=== PATIENT | female | born 1985 | race Caucasian/White ===

== ENCOUNTER 2020-07-06 19:32 | Emergency (ER) | payer MEDICAID ==
--- NOTE | 2020-07-06 19:48 | ERPHSYRPT ---
- History of Present Illness Time Seen by Provider: 07/06/20 19:47 Historian: patient Exam Limitations: no limitations Physician History: This is a 35-year-old white female who has had 3 C-sections and hysterectomy and presents with 1 month history of abdominal pain. In the last 4 days she has had worsening abdominal pain. She has had intermittent nausea but no vomiting no diarrhea. She had no fever or chills. She does have urinary frequency. The pain is primarily upper quadrant on the left side and into the back on the left side. Timing/Duration: day(s) (4) Activities at Onset: none Quality: cramping Abdominal Pain Onset Location: LUQ, LLQ, flank (Left) Pain Radiation: flank (Left) Severity of Pain-Max: mild Severity of Pain-Current: mild Modifying Factors: Improves With: nothing Associated Symptoms: nausea, No chest pain, No diarrhea, No fever/chills, No vomiting Previous symptoms: same symptoms as today (Present for a month but worsening) Allergies/Adverse Reactions: sulfamethoxazole [From Bactrim] Allergy (Verified 07/06/20 19:38) trimethoprim [From Bactrim] Allergy (Verified 07/06/20 19:38) Travel Risk - International Travel Have you traveled outside of the country in past 3 weeks: No - Coronavirus Screening Are you exhibiting any of the following symptoms?: No Close contact with a COVID-19 positive Pt in past 14-21 Days: No - Vaccine Status Have you recieved a Covid-19 vaccination: No - Review of Systems Constitutional: No Symptoms Eyes: No Symptoms Ears, Nose, & Throat: No Symptoms Respiratory: No Symptoms Cardiac: No Symptoms Abdominal/Gastrointestinal: Abdominal Pain, No Nausea, No Vomiting, No Diarrhea Genitourinary Symptoms: No Symptoms Musculoskeletal: No Symptoms Skin: No Symptoms Neurological: No Symptoms Psychological: No Symptoms Endocrine: No Symptoms Hematologic/Lymphatic: No Symptoms Immunological/Allergic: No Symptoms All Other Systems: Reviewed and Negative - Past Medical History Pertinent Past Medical History: Yes - Past Surgical History Past Surgical History: Yes - Nursing Vital Signs Nursing Vital Signs: Initial Vital Signs Temperature 98.3 F 07/06/20 19:40 Pulse Rate 98 H 07/06/20 19:40 Respiratory Rate 16 07/06/20 19:40 Blood Pressure 139/88 07/06/20 19:40 O2 Sat by Pulse Oximetry 97 07/06/20 19:40 Pain Scale Pain Intensity 8 - Physical Exam General Appearance: no apparent distress, alert, anxiety Eye Exam: PERRL/EOMI, eyes nml inspection Ears, Nose, Throat Exam: normal ENT inspection, moist mucous membranes Neck Exam: normal inspection, non-tender, supple, full range of motion Respiratory Exam: normal breath sounds, lungs clear, airway intact, No chest tenderness, No respiratory distress Cardiovascular Exam: regular rate/rhythm, normal heart sounds, normal peripheral pulses Gastrointestinal/Abdomen Exam: soft, normal bowel sounds, tenderness (Mild diffuse), guarding (Plus/minus) Pelvic Exam: not done Rectal Exam: not done Back Exam: normal inspection, normal range of motion, No CVA tenderness, No vertebral tenderness Extremity Exam: normal inspection, normal range of motion, pelvis stable Neurologic Exam: alert, oriented x 3, cooperative, change lead II-XII nml as tested, normal mood/affect, nml cerebellar function, nml station & gait, sensation nml Skin Exam: normal color, warm, dry Lymphatic Exam: No adenopathy SpO2 Interpretation: normal O2 Delivery: Room Air - Course Nursing assessment & vital signs reviewed: Yes Ordered Tests: Active Orders 24 hr Category Date Time Status Clean Catch Urine Specimen STAT Care 07/06/20 19:55 Active IV Insertion STAT Care 07/06/20 19:55 Active ABDOMEN AND PELVIS W/0 CONTRAS [CT] Stat Exams 07/06/20 20:16 Taken AMYLASE Stat Lab 07/06/20 19:55 Completed CBC W DIFF Stat Lab 07/06/20 19:55 Completed CMP Stat Lab 07/06/20 19:55 Completed LIPASE Stat Lab 07/06/20 19:55 Completed Lactic Acid Stat Lab 07/06/20 19:55 Completed UA W/RFX UR CULTURE Stat Lab 07/06/20 20:03 Completed Urine Triage Profile Stat Lab 07/06/20 20:03 Completed Lab/Rad Data: Laboratory Result Diagrams 07/06/20 19:55 07/06/20 19:55 Laboratory Results 07/06/20 07/06/20 07/06/20 Range/Units 20:03 20:03 19:55 WBC (4.0-10.5) K/mm3 RBC (4.1-5.4) M/mm3 Hgb (12.0-16.0) gm/dl Hct (35-47) % MCV (78-100) fl MCH (26-32) pg MCHC (32-36) g/dl RDW (11.5-14.0) % Plt Count (150-450) K/mm3 MPV (7.5-11.0) fl Gran % (36.0-66.0) % Eos # (Auto) (0-0.5) Absolute Lymphs (auto) (1.0-4.6) Absolute Monos (auto) (0.0-1.3) Lymphocytes % (24.0-44.0) % Monocytes % (0.0-12.0) % Eosinophils % (0.00-5.0) % Basophils % (0.0-0.4) % Absolute Granulocytes (1.4-6.9) Basophils # (0-0.4) Sodium 138 (137-145) mmol/L Potassium 4.0 (3.5-5.1) mmol/L Chloride 103 (98-107) mmol/L Carbon Dioxide 25 (22-30) mmol/L Anion Gap 13.1 (5-15) MEQ/L BUN 7 (7-17) mg/dL Creatinine 0.64 (0.52-1.04) mg/dL Estimated GFR > 60.0 ML/MIN Glucose 95 (74-106) mg/dL Lactic Acid (0.4-2.0) Calcium 9.5 (8.4-10.2) mg/dL Total Bilirubin 0.30 (0.2-1.3) mg/dL AST 45 H (14-36) U/L ALT 39 H (0-35) U/L Alkaline Phosphatase 47 (38-126) U/L Serum Total Protein 7.1 (6.3-8.2) g/dL Albumin 4.6 (3.5-5.0) g/dL Amylase 66 (30-110) U/L Lipase 41 (23-300) U/L Urine Color STRAW (YELLOW) Urine Appearance CLEAR (CLEAR) Urine pH 7.0 (5-6) Ur Specific [place] 1.005 (1.005-1.025) Urine Protein NEGATIVE (Negative) Urine Ketones NEGATIVE (NEGATIVE) Urine Blood NEGATIVE (0-5) Itz/ul Urine Nitrite NEGATIVE (NEGATIVE) Urine Bilirubin NEGATIVE (NEGATIVE) Urine Urobilinogen NEGATIVE (0-1) mg/dL Ur Leukocyte Esterase NEGATIVE (NEGATIVE) Urine WBC (Auto) NONE (0-5) /HPF Urine RBC (Auto) NONE (0-2) /HPF U Epithel Cells (Auto) NONE (FEW) /HPF Urine Bacteria (Auto) NONE (NEGATIVE) /HPF Urine Culture Reflexed NO (NO) Urine Glucose NEGATIVE (NEGATIVE) mg/dL Urine Opiates Level NEGATIVE (NEGATIVE) Ur Methadone NEGATIVE (NEGATIVE) Urine Barbiturates NEGATIVE (NEGATIVE) Ur Phencyclidine (PCP) NEGATIVE (NEGATIVE) Urine Amphetamine NEGATIVE (NEGATIVE) U Benzodiazepine Level NEGATIVE (NEGATIVE) Urine Cocaine NEGATIVE (NEGATIVE) Urine Marijuana (THC) POSITIVE (NEGATIVE) 07/06/20 07/06/20 Range/Units 19:55 19:55 WBC 12.4 H (4.0-10.5) K/mm3 RBC 4.74 (4.1-5.4) M/mm3 Hgb 14.9 (12.0-16.0) gm/dl Hct 43.7 (35-47) % MCV 92.2 (78-100) fl MCH 31.4 (26-32) pg MCHC 34.1 (32-36) g/dl RDW 13.0 (11.5-14.0) % Plt Count 328 (150-450) K/mm3 MPV 9.9 (7.5-11.0) fl Gran % 89.2 H (36.0-66.0) % Eos # (Auto) 0 (0-0.5) Absolute Lymphs (auto) 0.98 L (1.0-4.6) Absolute Monos (auto) 0.33 (0.0-1.3) Lymphocytes % 7.9 L (24.0-44.0) % Monocytes % 2.7 (0.0-12.0) % Eosinophils % 0.0 (0.00-5.0) % Basophils % 0.2 (0.0-0.4) % Absolute Granulocytes 11.09 H (1.4-6.9) Basophils # 0.03 (0-0.4) Sodium (137-145) mmol/L Potassium (3.5-5.1) mmol/L Chloride (98-107) mmol/L Carbon Dioxide (22-30) mmol/L Anion Gap (5-15) MEQ/L BUN (7-17) mg/dL Creatinine (0.52-1.04) mg/dL Estimated GFR ML/MIN Glucose (74-106) mg/dL Lactic Acid 1.0 (0.4-2.0) Calcium (8.4-10.2) mg/dL Total Bilirubin (0.2-1.3) mg/dL AST (14-36) U/L ALT (0-35) U/L Alkaline Phosphatase (38-126) U/L Serum Total Protein (6.3-8.2) g/dL Albumin (3.5-5.0) g/dL Amylase (30-110) U/L Lipase (23-300) U/L Urine Color (YELLOW) Urine Appearance (CLEAR) Urine pH (5-6) Ur Specific [place] (1.005-1.025) Urine Protein (Negative) Urine Ketones (NEGATIVE) Urine Blood (0-5) Itz/ul Urine Nitrite (NEGATIVE) Urine Bilirubin (NEGATIVE) Urine Urobilinogen (0-1) mg/dL Ur Leukocyte Esterase (NEGATIVE) Urine WBC (Auto) (0-5) /HPF Urine RBC (Auto) (0-2) /HPF U Epithel Cells (Auto) (FEW) /HPF Urine Bacteria (Auto) (NEGATIVE) /HPF Urine Culture Reflexed (NO) Urine Glucose (NEGATIVE) mg/dL Urine Opiates Level (NEGATIVE) Ur Methadone (NEGATIVE) Urine Barbiturates (NEGATIVE) Ur Phencyclidine (PCP) (NEGATIVE) Urine Amphetamine (NEGATIVE) U Benzodiazepine Level (NEGATIVE) Urine Cocaine (NEGATIVE) Urine Marijuana (THC) (NEGATIVE) - Progress Progress: unchanged Progress Note: 07/06/20 20:46 CAT scan of the abdomen pelvis without contrast is negative for any acute intra- abdominal or intrapelvic process. Counseled pt/family regarding: lab results, diagnosis, need for follow-up, rad results - Departure Departure Disposition: Home Clinical Impression: Abdominal pain Condition: Stable Critical Care Time: No Referrals: RILEY MATHEW [Primary Care Provider] - Additional Instructions: Drink plenty of fluids. Call your primary care provider tomorrow morning to make arrangements for follow-up for further management.
[2020-07-06 20:22] LABS: Absolute Neutrophil Ct (ANC) 11.09 (1.4-6.9); BASOPHIL % 0.2 % (0.0-0.4); Basophil (Absolute #) 0.03 (0-0.4); Eosinophil (Absolute #) 0 (0-0.5); Hematocrit 43.7 % (35-47); Hemoglobin 14.9 gm/dl (12.0-16.0); Lymphocyte (Absolute #) 0.98 (1.0-4.6); Lymphocytes % 7.9 % (24.0-44.0); Mean Cell Volume 92.2 fl (78-100); Mean Corpuscular Hemoglobin 31.4 pg (26-32); Mean Corpuscular Hgb Concent. 34.1 g/dl (32-36); Mean Platelet Volume 9.9 fl (7.5-11.0); Monocyte (Absolute #) 0.33 (0.0-1.3); Monocytes % 2.7 % (0.0-12.0); Neutrophil % 89.2 % (36.0-66.0); Platelet Count 328 K/mm3 (150-450); Red Blood Count 4.74 M/mm3 (4.1-5.4); White Blood Count 12.4 K/mm3 (4.0-10.5)
[2020-07-06 20:28] LABS: Appearance CLEAR (CLEAR); Bilirubin NEGATIVE (NEGATIVE); Blood NEGATIVE Ery/ul (0-5); Glucose NEGATIVE (NEGATIVE); Ketones NEGATIVE (NEGATIVE); Leukocyte Esterase NEGATIVE (NEGATIVE); Nitrite NEGATIVE (NEGATIVE); Protein,Urine Dip NEGATIVE (Negative); Specific Gravity 1.005 (1.005-1.025); Urobilinogen NEGATIVE mg/dL (0-1)
[2020-07-06 20:38] VITALS: PULSE 76
[2020-07-06 20:40] LABS: Amphetamine,Urine NEGATIVE (NEGATIVE); Barbiturate,Urine NEGATIVE (NEGATIVE); Benzodiazepine,Urine NEGATIVE (NEGATIVE); Cocaine,Urine NEGATIVE (NEGATIVE); Methadone,Urine NEGATIVE (NEGATIVE); Opiate,Urine NEGATIVE (NEGATIVE); PCP,Urine NEGATIVE (NEGATIVE); THC,Urine POSITIVE (NEGATIVE)
[2020-07-06 20:41] LABS: ALBUMIN 4.6 g/dL (3.5-5.0); ALKALINE PHOSPHATASE 47 U/L (38-126); AMYLASE 66 U/L (30-110); ANION GAP 13.1 MEQ/L (5-15); BLOOD UREA NITROGEN 7 mg/dL (7-17); CHLORIDE 103 mmol/L (98-107); Calcium 9.5 mg/dL (8.4-10.2); Carbon Dioxide 25 mmol/L (22-30); Creatinine 1 0.64 mg/dL (0.52-1.04); EST GLOMERULAR FILTRATION RATE > 60.0 ML/MIN; Glucose 95 mg/dL (74-106); LIPASE 41 U/L (23-300); SGOT/AST 45 U/L (14-36); SGPT/ALT 39 U/L (0-35); SODIUM 138 mmol/L (137-145); Total Protein 7.1 g/dL (6.3-8.2)
[2020-07-06] MEDS ORDERED: NORCO 5/325 MG ONE (20:49)
[2020-07-06] MEDS: NORCO 5/325 MG PO ONE (20:50)
[2020-07-06 20:57] VITALS: BP 115/83; O2SAT 96
--- NOTE | 2020-07-07 08:37 | XRAY ---
Indication: Left abdomen pain and diarrhea 2 months. History of ovarian cancer. Multiple contiguous axial images obtained through the abdomen and pelvis without contrast. Comparison: None Lung bases are clear. Heart is not enlarged. Noncontrasted stomach and bowel loops nonobstructed. Normal appendix. There has been hysterectomy. Remaining liver, gallbladder, pancreas, spleen, adrenal glands, kidneys, ureters, bladder, and aorta appear unremarkable for noncontrast exam. Osseous structures intact. No ventral or inguinal hernias. Impression: Negative CT abdomen/pelvis without contrast exam.
== END 2020-07-06 21:09 | disposition home or self-care (01) ==
LOC: ED 19:32
DX: R10.9 Unspecified abdominal pain (principal)
CPT/HCPCS: 36000; 36415; 74176; 80053; 80307; 81001; 82150; 83605; 83690; 85025; 99284; A9270-GY

== ENCOUNTER 2021-02-19 15:01 | Emergency (ER) | payer OTHER ==
[2021-02-19 15:13] VITALS: BP 116/74; PULSE 87; O2SAT 100
[2021-02-19] MEDS ORDERED: TORAdol 30 mg Injection IM ONE (15:32)
[2021-02-19] MEDS ORDERED: Reglan 10 MG/2 ML IM ONE (15:32)
[2021-02-19] MEDS ORDERED: BENADRYL 50 MG/ML IM ONE (15:32)
--- NOTE | 2021-02-19 15:38 | ERPHSYRPT ---
- History of Present Illness Time Seen by Provider: 02/19/21 15:17 Source: patient Exam Limitations: no limitations Patient Subjective Stated Complaint: Headache Triage Nursing Assessment: Patient ambulated back to ED and transferred self to bed. Patient A+O X3. Patient's skin pink, warm and dry. Patient complains of headache 8/10 for the past two days. Patient denies any recent trauma or injury. Patient complains of a lot of stress in her life recently. Patient denies N/V or diarrhea. Physician History: 35 years old female with history of migraines, anxiety, depression presented in the ER with chief complaint of left-sided headache for the last 2 days, continuous, moderate to severe intensity, sharp in nature, without any significant aggravating or relieving factors. She has been taking [id number] medication with no significant relief. Denies any focal numbness tingling weakness. No visual disturbance. Headache is similar to previous episodes and does not think this is the worst headache of her life. Patient reports she is going through a lot of stress and this is adding to her symptoms. Denies any suicidal or homicidal ideations. Timing/Duration: day(s) (2), constant, gradual onset, worse Quality: sharpness Head Pain Location: frontal, temporal, parietal Severity of Pain-Max: severe Severity of Pain-Current: moderate Recent Head Trauma: frequent headaches Associated Symptoms: nausea/vomiting, No confusion, No dizziness, No fatigue, No facial pain, No fever/chills, No flushing, No light-headedness, No loss of consciousness, No nasal congestion, No nasal drainage, No neck pain, No numbness in legs/feet, No rash, No sweating, No scotoma, No seizures, No sinus infection, No sensitive to light, No speech problems, No stiff neck, No trouble walking, No vision changes, No visual disturbance, No weakness Previous symptoms: same symptoms as today Allergies/Adverse Reactions: sulfamethoxazole [From Bactrim] Allergy (Verified 02/19/21 15:07) trimethoprim [From Bactrim] Allergy (Verified 02/19/21 15:07) Home Medications: Albuterol 2.5 mg/3 ml Neb [Proventil 2.5 mg/3 ml Neb] 1 vial IH Q4-6HPRN PRN 07/06/20 [History] Albuterol Sulfate [Ventolin Hfa] 2 puffs IH Q4H PRN 07/06/20 [History] Budesonide/Formoterol Fumarate [Symbicort 160-4.5 Mcg Inhaler] 2 puffs IH BID 07/06/20 [History] Escitalopram Oxalate 10 mg [Lexapro 10 MG] 10 mg PO DAILY 07/06/20 [History] Gabapentin 400 mg [Neurontin 400 MG] 400 mg PO TID 07/06/20 [History] hydrOXYzine HCL [Hydroxyzine HCl] 10 mg PO TID 07/06/20 [History] hydrOXYzine HCL [Hydroxyzine HCl] 25 mg PO TID PRN 07/06/20 [History] Hx Tetanus, Diphtheria Vaccination/Date Given: Yes Hx Influenza Vaccination/Date Given: No Hx Pneumococcal Vaccination/Date Given: No Immunizations Up to Date: Yes Travel Risk - International Travel Have you traveled outside of the country in past 3 weeks: No - Coronavirus Screening Are you exhibiting any of the following symptoms?: No Close contact with a COVID-19 positive Pt in past 14-21 Days: No - Vaccine Status Have you recieved a Covid-19 vaccination: No - Review of Systems Constitutional: No Symptoms Eyes: No Symptoms Ears, Nose, & Throat: No Symptoms Respiratory: No Symptoms Cardiac: No Symptoms Abdominal/Gastrointestinal: Nausea, No Abdominal Pain, No Vomiting Genitourinary Symptoms: No Symptoms Musculoskeletal: No Symptoms Skin: No Symptoms Neurological: Headache Psychological: Anxiety Endocrine: No Symptoms Hematologic/Lymphatic: No Symptoms Immunological/Allergic: No Symptoms - Past Medical History Pertinent Past Medical History: Yes Neurological History: Peripheral Neuropathy Respiratory History: Asthma Psycho-Social History: Anxiety, Depression, Other - Past Surgical History Past Surgical History: Yes Musculoskeletal: Other Female Surgical History: Hysterectomy, Section Other Surgical History: 3- sections, finger surgery - Social History Smoking Status: Current every day smoker Exposure to second hand smoke: Yes Drug Use: none Patient Lives Alone: No - Female History Hx Now: No - Nursing Vital Signs Nursing Vital Signs: Initial Vital Signs Temperature 97.8 F 02/19/21 15:08 Pulse Rate 87 02/19/21 15:08 Respiratory Rate 18 02/19/21 15:08 Blood Pressure 116/74 02/19/21 15:08 O2 Sat by Pulse Oximetry 100 02/19/21 15:08 Pain Scale Pain Intensity 8 - Physical Exam General Appearance: no apparent distress, alert Eye Exam: PERRL/EOMI, eyes nml inspection Ears, Nose, Throat Exam: normal ENT inspection, pharynx normal Neck Exam: normal inspection, non-tender, supple, full range of motion, No meningismus Respiratory Exam: normal breath sounds, lungs clear Cardiovascular Exam: regular rate/rhythm, normal heart sounds Back Exam: normal inspection, normal range of motion Extremity Exam: normal inspection, normal range of motion Mental Status Exam: alert, oriented x 3, cooperative personal lines account executive Exam: normal hearing, normal speech, PERRL Coordination/Gait Exam: normal finger to nose, normal gait, normal cerebellar function, negative Romberg's sign DTR Exam: bicep (R): 2+, bicep (L): 2+, knee (R): 2+, knee (L): 2+ Skin Exam: normal color SpO2 Interpretation: normal SpO2: 100 O2 Delivery: Room Air Ordered Tests: Medication Summary Discontinued Medications Generic Name Dose Route Start Last Admin Trade Name [place] PRN Reason Stop Dose Admin Acetaminophen 975 mg 02/19/21 15:32 02/19/21 16:25 Acetaminophen 325 Mg Tablet PO 02/19/21 15:33 Not Given STAT ONE Acetaminophen Confirm 02/19/21 16:01 Acetaminophen 325 Mg Tablet Administered 02/19/21 16:02 Dose 975 mg .ROUTE .STK-MED ONE Diphenhydramine HCl 25 mg 02/19/21 15:32 02/19/21 16:24 Diphenhydramine Hcl 50 Mg/Ml Vial IM 02/19/21 15:33 Not Given STAT ONE Diphenhydramine HCl Confirm 02/19/21 16:01 Diphenhydramine Hcl 50 Mg/Ml Vial Administered 02/19/21 16:02 Dose 50 mg .ROUTE .STK-MED ONE Ketorolac Tromethamine 30 mg 02/19/21 15:32 02/19/21 16:25 Ketorolac Tromethamine 30 Mg/Ml Inj IM 02/19/21 15:33 Not Given STAT ONE Ketorolac Tromethamine Confirm 02/19/21 16:01 Ketorolac Tromethamine 30 Mg/Ml Inj Administered 02/19/21 16:02 Dose 30 mg .ROUTE .STK-MED ONE Metoclopramide HCl 10 mg 02/19/21 15:32 02/19/21 16:24 Metoclopramide Hcl 10 Mg/2 Ml Vial IM 02/19/21 15:33 Not Given STAT ONE Metoclopramide HCl Confirm 02/19/21 16:02 Metoclopramide Hcl 10 Mg/2 Ml Vial Administered 02/19/21 16:03 Dose 10 mg .ROUTE .STK-MED ONE - Progress Progress: improved Air Movement: good Progress Note: 02/19/21 16:19 I have ordered migraine cocktail. Patient has a nonfocal neuro exam throughout her stay in the ER. Plan RN went into administering medication, patient with in deep sleep. I went in there and patient was difficult to wake up and she did admit that she has taken sleeping pill before she coming here and her headache is not there anymore. Headache was similar to previous episodes and patient does have history of drug use, I would not administer any medication currently and recommended taking Tylenol ibuprofen as needed. She is not confused or altered at all. She walked out of the ER in a stable condition. Blood Culture(s) Obtained: No Antibiotics given: No Counseled pt/family regarding: diagnosis, need for follow-up - Departure Departure Disposition: Home Clinical Impression: Migraine headache Qualifiers: Migraine type: without aura Status migrainosus presence: without status migrainosus Intractability: not intractable Qualified Code(s): G43.009 - Migraine without aura, not intractable, without status migrainosus Condition: Stable Critical Care Time: No Referrals: RILEY MATHEW NP [Primary Care Provider] - Follow up/PCP as directed (In 2 days for reevaluation) Instructions: Headache, Adult (DC) Additional Instructions: Take Tylenol/ibuprofen as needed for headache. Follow-up with primary care for reevaluation. Return to ER for intractable headache, numbness tingling weakness, visual disturbance etc. Prescriptions: Ibuprofen 600 mg PO Q6HPRN PRN 10 Days #20 tablet PRN Reason: Pain
[2021-02-19] MEDS ORDERED: TYLENOL 325 MG ONE (16:01)
[2021-02-19] MEDS ORDERED: TORAdol 30 mg Injection ONE (16:01)
[2021-02-19] MEDS ORDERED: BENADRYL 50 MG/ML ONE (16:01)
[2021-02-19] MEDS ORDERED: Reglan 10 MG/2 ML ONE (16:02)
[2021-02-19] MEDS: TYLENOL 325 MG PO ONE ×2 (16:03→16:25)
== END 2021-02-19 16:29 | disposition home or self-care (01) ==
LOC: ED 15:01
DX: G43.009 Migraine without aura, not intractable, without status migrainosus (principal); R11.2 Nausea with vomiting, unspecified; Z72.0 Tobacco use
CPT/HCPCS: 99283; J1200; J1885; A9270-GY

== ENCOUNTER 2021-02-28 17:40 | Emergency (ER) | payer OTHER ==
--- NOTE | 2021-02-28 17:41 | ERPHSYRPT ---
- History of Present Illness Time Seen by Provider: 02/28/21 17:41 Source: patient, EMS Exam Limitations: no limitations Physician History: This is a 35-year-old white female with a history of asthma as well as anxiety, depression and peripheral neuropathy. The patient currently smokes every day. Her nurse practitioner is Dot Johns. Patient has had a hysterectomy in the past. Patient states her symptoms started yesterday and today they worsen including worsening shortness of breath cough loss of taste headache and body aches. Patient was given Solu-Medrol intravenously by EMS during transport to the emergency department. Timing/Duration: yesterday, worse Activities at Onset: none Severity of Dyspnea-Max: mild Severity of Dyspnea-Current: mild Possible Cause: occasional episodes Associated Symptoms: cough, loss of appetite, chills, No chest pain/discomfort Allergies/Adverse Reactions: sulfamethoxazole [From Bactrim] Allergy (Verified 02/28/21 17:54) trimethoprim [From Bactrim] Allergy (Verified 02/28/21 17:54) Home Medications: Albuterol 2.5 mg/3 ml Neb [Proventil 2.5 mg/3 ml Neb] 1 vial IH Q4-6HPRN PRN 07/06/20 [History] Albuterol Sulfate [Ventolin Hfa] 2 puffs IH Q4H PRN 07/06/20 [History] Budesonide/Formoterol Fumarate [Symbicort 160-4.5 Mcg Inhaler] 2 puffs IH BID 07/06/20 [History] Escitalopram Oxalate 10 mg [Lexapro 10 MG] 10 mg PO DAILY 07/06/20 [History] Gabapentin 400 mg [Neurontin 400 MG] 400 mg PO TID 07/06/20 [History] hydrOXYzine HCL [Hydroxyzine HCl] 10 mg PO TID 07/06/20 [History] hydrOXYzine HCL [Hydroxyzine HCl] 25 mg PO TID PRN 07/06/20 [History] Hx Tetanus, Diphtheria Vaccination/Date Given: Yes Hx Influenza Vaccination/Date Given: No Hx Pneumococcal Vaccination/Date Given: No Travel Risk - International Travel Have you traveled outside of the country in past 3 weeks: No - Coronavirus Screening Are you exhibiting any of the following symptoms?: Yes Symptoms: Cough: New Onset, Shortness of Breath, Loss of Taste or Smell, Headaches/Body Aches/Fatigue Close contact with a COVID-19 positive Pt in past 14-21 Days: No - Vaccine Status Have you recieved a Covid-19 vaccination: No - Review of Systems Constitutional: No Symptoms Eyes: No Symptoms Ears, Nose, & Throat: Nose Congestion, Throat Pain Respiratory: Cough, Dyspnea Cardiac: No Symptoms (Mild) Abdominal/Gastrointestinal: No Symptoms Genitourinary Symptoms: No Symptoms Musculoskeletal: Arthralgias, Myalgias Skin: No Symptoms Neurological: No Symptoms Psychological: Anxiety Endocrine: No Symptoms Hematologic/Lymphatic: No Symptoms Immunological/Allergic: No Symptoms All Other Systems: Reviewed and Negative - Past Medical History Pertinent Past Medical History: Yes Neurological History: Peripheral Neuropathy Respiratory History: Asthma Psycho-Social History: Anxiety, Depression, Other - Past Surgical History Past Surgical History: Yes Musculoskeletal: Other Female Surgical History: Hysterectomy, Section Other Surgical History: 3- sections, finger surgery - Social History Smoking Status: Current every day smoker Exposure to second hand smoke: Yes Drug Use: none Patient Lives Alone: No - Nursing Vital Signs Nursing Vital Signs: Initial Vital Signs Temperature 98.1 F 02/28/21 17:41 Pulse Rate 82 02/28/21 17:41 Respiratory Rate 16 02/28/21 17:41 Blood Pressure 123/86 02/28/21 17:41 O2 Sat by Pulse Oximetry 99 02/28/21 17:41 Pain Scale Pain Intensity 3 - Physical Exam General Appearance: no apparent distress, alert, anxiety Eye Exam: PERRL/EOMI, eyes nml inspection Ears, Nose, Throat Exam: hearing grossly normal, normal ENT inspection, normal pharynx Neck Exam: normal inspection, non-tender, supple, full range of motion Respiratory Exam: normal breath sounds, lungs clear, airway intact, No chest tenderness, No respiratory distress Cardiovascular/Chest Exam: normal heart sounds, regular rate/rhythm Abdominal/Gastrointestinal Exam: soft, normal bowel sounds, No tenderness Rectal Exam: not done Extremity Exam: non-tender, normal range of motion, normal inspection Neurologic Exam: alert, oriented x 3, cooperative, sports statistician II-XII nml as tested, normal mood/affect, nml cerebellar function, nml station & gait, sensation nml Skin Exam: normal color, warm, dry Lymphatic Exam: No adenopathy SpO2 Interpretation: normal O2 Delivery: Room Air - Course Nursing assessment & vital signs reviewed: Yes Ordered Tests: Active Orders 24 hr Category Date Time Status EKG-ER Only STAT Care 02/28/21 18:01 Active IV Insertion STAT Care 02/28/21 18:18 Active Isolation, Initiate & Maintain STAT Care 02/28/21 18:01 Active Pulse Oximetry (ED) STAT Care 02/28/21 18:01 Active CHEST 1 VIEW (PORTABLE) Stat Exams 02/28/21 18:02 Taken BLOOD CULTURE Stat Lab 02/28/21 18:35 Received CBC W DIFF Stat Lab 02/28/21 18:30 Completed CMP Stat Lab 02/28/21 18:35 Completed D-DIMER QUANTITATIVE Stat Lab 02/28/21 18:35 Completed Ferritin Stat Lab 02/28/21 18:35 Received LDH-LACTATE DEHYDROGENASE Stat Lab 02/28/21 18:35 Completed Lactic Acid Stat Lab 02/28/21 18:53 Completed [place] Screen Stat Lab 02/28/21 18:35 Completed TROPONIN Q3H Lab 02/28/21 18:35 Completed TROPONIN Q3H Lab 02/28/21 21:15 Ordered TROPONIN Q3H Lab 03/01/21 00:15 Ordered TROPONIN Q3H Lab 03/01/21 03:15 Ordered TROPONIN Q3H Lab 03/01/21 06:15 Ordered Medication Summary Generic Name Dose Route Start Last Admin Trade Name Freq PRN Reason Stop Dose Admin Sodium Chloride 1,000 mls @ 100 mls/hr 02/28/21 18:15 02/28/21 18:44 Sodium Chloride 0.9% 1000 Ml IV 03/30/21 18:14 100 mls/hr .Q10H FROYLAN Administration Ceftriaxone Sodium/Dextrose 1 g in 50 mls @ 100 mls/hr 02/28/21 19:42 02/28/21 19:47 Rocephin 1 Gm-D5w 50 Ml Bag IV 02/28/21 20:11 100 ml/hr STAT STA 100 mls/hr Administration Discontinued Medications Generic Name Dose Route Start Last Admin Trade Name Freq PRN Reason Stop Dose Admin Hydrocodone Bitart/Acetaminophen 10 ml 02/28/21 18:03 02/28/21 18:44 Hydrocodone/Acetaminophen 5 Ml Udcup PO 02/28/21 18:04 10 ml STAT STA Administration Hydrocodone Bitart/Acetaminophen Confirm 02/28/21 18:41 Hydrocodone/Acetaminophen 5 Ml Udcup Administered 02/28/21 18:42 Dose 10 ml .ROUTE .STK-MED ONE Ceftriaxone Sodium/Dextrose Confirm 02/28/21 19:45 Rocephin 1 Gm-D5w 50 Ml Bag Administered 02/28/21 19:46 Dose 1 g in 50 mls @ ud IV .STK-MED ONE Potassium Chloride 20 meq 02/28/21 19:40 02/28/21 19:43 Potassium Chloride 10 Meq Tablet PO 02/28/21 19:41 20 meq STAT ONE Administration Potassium Chloride Confirm 02/28/21 19:42 Potassium Chloride 10 Meq Tablet Administered 02/28/21 19:43 Dose 20 meq PO .STK-MED ONE Lab/Rad Data: Laboratory Result Diagrams 02/28/21 18:30 02/28/21 18:35 Laboratory Results 02/28/21 02/28/21 02/28/21 Range/Units 18:53 18:41 18:35 WBC (4.0-10.5) K/mm3 RBC (4.1-5.4) M/mm3 Hgb (12.0-16.0) gm/dl Hct (35-47) % MCV (78-100) fl MCH (26-32) pg MCHC (32-36) g/dl RDW (11.5-14.0) % Plt Count (150-450) K/mm3 MPV (7.5-11.0) fl Gran % (36.0-66.0) % Eos # (Auto) (0-0.5) Absolute Lymphs (auto) (1.0-4.6) Absolute Monos (auto) (0.0-1.3) Lymphocytes % (24.0-44.0) % Monocytes % (0.0-12.0) % Eosinophils % (0.00-5.0) % Basophils % (0.0-0.4) % Absolute Granulocytes (1.4-6.9) Basophils # (0-0.4) D-Dimer (215-500) ng/mL Sodium (137-145) mmol/L Potassium (3.5-5.1) mmol/L Chloride (98-107) mmol/L Carbon Dioxide (22-30) mmol/L Anion Gap (5-15) MEQ/L BUN (7-17) mg/dL Creatinine (0.52-1.04) mg/dL Estimated GFR ML/MIN Glucose (74-106) mg/dL Lactic Acid 2.7 H (0.4-2.0) Calcium (8.4-10.2) mg/dL Total Bilirubin (0.2-1.3) mg/dL AST (14-36) U/L ALT (0-35) U/L Alkaline Phosphatase (38-126) U/L Lactate Dehydrogenase (120-246) U/L Troponin I (0.000-0.034) ng/mL Serum Total Protein (6.3-8.2) g/dL Albumin (3.5-5.0) g/dL Monoscreen NEGATIVE (Negative) Influenza Type A Ag NEGATIVE (NEGATIVE) Influenza Type B Ag NEGATIVE (NEGATIVE) RSV (PCR) NEGATIVE (Negative) SARS-CoV-2 (PCR) NEGATIVE (NEGATIVE) Group A Strep Antibody (NEGATIVE) 02/28/21 02/28/21 02/28/21 Range/Units 18:35 18:35 18:35 WBC (4.0-10.5) K/mm3 RBC (4.1-5.4) M/mm3 Hgb (12.0-16.0) gm/dl Hct (35-47) % MCV (78-100) fl MCH (26-32) pg MCHC (32-36) g/dl RDW (11.5-14.0) % Plt Count (150-450) K/mm3 MPV (7.5-11.0) fl Gran % (36.0-66.0) % Eos # (Auto) (0-0.5) Absolute Lymphs (auto) (1.0-4.6) Absolute Monos (auto) (0.0-1.3) Lymphocytes % (24.0-44.0) % Monocytes % (0.0-12.0) % Eosinophils % (0.00-5.0) % Basophils % (0.0-0.4) % Absolute Granulocytes (1.4-6.9) Basophils # (0-0.4) D-Dimer < 215 L (215-500) ng/mL Sodium (137-145) mmol/L Potassium (3.5-5.1) mmol/L Chloride (98-107) mmol/L Carbon Dioxide (22-30) mmol/L Anion Gap (5-15) MEQ/L BUN (7-17) mg/dL Creatinine (0.52-1.04) mg/dL Estimated GFR ML/MIN Glucose (74-106) mg/dL Lactic Acid (0.4-2.0) Calcium (8.4-10.2) mg/dL Total Bilirubin (0.2-1.3) mg/dL AST (14-36) U/L ALT (0-35) U/L Alkaline Phosphatase (38-126) U/L Lactate Dehydrogenase (120-246) U/L Troponin I < 0.012 (0.000-0.034) ng/mL Serum Total Protein (6.3-8.2) g/dL Albumin (3.5-5.0) g/dL Monoscreen (Negative) Influenza Type A Ag (NEGATIVE) Influenza Type B Ag (NEGATIVE) RSV (PCR) (Negative) SARS-CoV-2 (PCR) (NEGATIVE) Group A Strep Antibody NOT DETECTED (NEGATIVE) 02/28/21 02/28/21 Range/Units 18:35 18:30 WBC 11.5 H (4.0-10.5) K/mm3 RBC 4.88 (4.1-5.4) M/mm3 Hgb 15.4 (12.0-16.0) gm/dl Hct 46.2 (35-47) % MCV 94.7 (78-100) fl MCH 31.6 (26-32) pg MCHC 33.3 (32-36) g/dl RDW 13.0 (11.5-14.0) % Plt Count 317 (150-450) K/mm3 MPV 9.8 (7.5-11.0) fl Gran % 83.9 H (36.0-66.0) % Eos # (Auto) 0.02 (0-0.5) Absolute Lymphs (auto) 1.33 (1.0-4.6) Absolute Monos (auto) 0.48 (0.0-1.3) Lymphocytes % 11.5 L (24.0-44.0) % Monocytes % 4.2 (0.0-12.0) % Eosinophils % 0.2 (0.00-5.0) % Basophils % 0.2 (0.0-0.4) % Absolute Granulocytes 9.69 H (1.4-6.9) Basophils # 0.02 (0-0.4) D-Dimer (215-500) ng/mL Sodium 138 (137-145) mmol/L Potassium 3.1 L (3.5-5.1) mmol/L Chloride 106 (98-107) mmol/L Carbon Dioxide 22 (22-30) mmol/L Anion Gap 12.5 (5-15) MEQ/L BUN 8 (7-17) mg/dL Creatinine 0.70 (0.52-1.04) mg/dL Estimated GFR > 60.0 ML/MIN Glucose 135 H (74-106) mg/dL Lactic Acid (0.4-2.0) Calcium 9.2 (8.4-10.2) mg/dL Total Bilirubin 0.40 (0.2-1.3) mg/dL AST 17 (14-36) U/L ALT 13 (0-35) U/L Alkaline Phosphatase 55 (38-126) U/L Lactate Dehydrogenase 142 (120-246) U/L Troponin I (0.000-0.034) ng/mL Serum Total Protein 6.5 (6.3-8.2) g/dL Albumin 4.4 (3.5-5.0) g/dL Monoscreen (Negative) Influenza Type A Ag (NEGATIVE) Influenza Type B Ag (NEGATIVE) RSV (PCR) (Negative) SARS-CoV-2 (PCR) (NEGATIVE) Group A Strep Antibody (NEGATIVE) - Progress Progress: improved Air Movement: good Progress Note: 02/28/21 19:51 Chest x-ray shows a question of right basilar atelectasis versus early infiltrate. This was compared to an older chest x-rays which did not show this area of abnormality. 02/28/21 19:53 Medical decision making: There is a question on chest x-ray of patient having early infiltrate on the right side. She does have a elevated white count that is mild but present. Patient also states she does not want liquid cough syrup. We will send her home with a prescription for azithromycin, prednisone and Tessalon Perles Blood Culture(s) Obtained: Yes Antibiotics given: Yes Counseled pt/family regarding: lab results, diagnosis, need for follow-up, rad results - Departure Departure Disposition: Home Clinical Impression: Upper respiratory infection Condition: Stable Critical Care Time: No Referrals: RILEY JOHNS NP [Primary Care Provider] - Follow up/PCP as directed Additional Instructions: Drink plenty of fluids. Do not smoke cigarettes. Use your inhalers and nebulizer treatments as prescribed. Take your new medications as prescribed. May take extra strength Tylenol 500 mg orally 4 times a day for pain control. Prescriptions: Benzonatate 200 mg PO TID PRN #10 cap PRN Reason: Cough Prednisone 10 mg [Deltasone 10 mg] 10 mg PO TID #12 tablet Azithromycin 250 mg [Zithromax 250 MG TABLET] 250 mg PO ZPACK #6 tablet
[2021-02-28 17:54] VITALS: O2SAT 98
[2021-02-28] MEDS ORDERED: HYDROCODONE-ACETAMIN 2.5-108/5 ML SOLUTION PO STA (18:03)
[2021-02-28] MEDS ORDERED: Sodium Chloride 0.9% 1000 ML 1,000 ML IV SCH (18:15)
[2021-02-28] MEDS ORDERED: HYDROCODONE-ACETAMIN 2.5-108/5 ML SOLUTION ONE (18:41)
[2021-02-28] MEDS ORDERED: Sodium Chloride 0.9% 1000 ML 1,000 ML ONE (18:41)
[2021-02-28 18:42] LABS: Absolute Neutrophil Ct (ANC) 9.69 (1.4-6.9); BASOPHIL % 0.2 % (0.0-0.4); Basophil (Absolute #) 0.02 (0-0.4); Eosinophil % 0.2 % (0.00-5.0); Eosinophil (Absolute #) 0.02 (0-0.5); Hematocrit 46.2 % (35-47); Hemoglobin 15.4 gm/dl (12.0-16.0); Lymphocyte (Absolute #) 1.33 (1.0-4.6); Lymphocytes % 11.5 % (24.0-44.0); Mean Cell Volume 94.7 fl (78-100); Mean Corpuscular Hemoglobin 31.6 pg (26-32); Mean Corpuscular Hgb Concent. 33.3 g/dl (32-36); Mean Platelet Volume 9.8 fl (7.5-11.0); Monocyte (Absolute #) 0.48 (0.0-1.3); Monocytes % 4.2 % (0.0-12.0); Neutrophil % 83.9 % (36.0-66.0); Platelet Count 317 K/mm3 (150-450); Red Blood Count 4.88 M/mm3 (4.1-5.4); White Blood Count 11.5 K/mm3 (4.0-10.5)
[2021-02-28 18:55] LABS: ALBUMIN 4.4 g/dL (3.5-5.0); ALKALINE PHOSPHATASE 55 U/L (38-126); ANION GAP 12.5 MEQ/L (5-15); BLOOD UREA NITROGEN 8 mg/dL (7-17); CHLORIDE 106 mmol/L (98-107); Calcium 9.2 mg/dL (8.4-10.2); Carbon Dioxide 22 mmol/L (22-30); EST GLOMERULAR FILTRATION RATE > 60.0 ML/MIN; Glucose 135 mg/dL (74-106); LDH-LACTATE DEHYDROGENASE 142 U/L (120-246); Potassium 3.1 mmol/L (3.5-5.1); SGOT/AST 17 U/L (14-36); SGPT/ALT 13 U/L (0-35); SODIUM 138 mmol/L (137-145); Total Protein 6.5 g/dL (6.3-8.2)
[2021-02-28 19:26] LABS: INFLUENZA A NEGATIVE (NEGATIVE); INFLUENZA B NEGATIVE (NEGATIVE); RESPIRATORY SYNCTIAL VIRUS NEGATIVE (Negative); SARS-CoV-2 Xpert Express NEGATIVE (NEGATIVE)
[2021-02-28] MEDS ORDERED: Klor Con 10 MEQ PO ONE ×2 (19:40→19:42)
[2021-02-28] MEDS ORDERED: ROCEPHIN 1 Gm-D5w 50 ml Bag** 1 G/50 ML IVPB IV STA (19:42)
[2021-02-28] MEDS ORDERED: ROCEPHIN 1 Gm-D5w 50 ml Bag** 1 G/50 ML IVPB IV ONE (19:45)
[2021-02-28 20:05] VITALS: BP 129/81; PULSE 74
--- NOTE | 2021-03-01 09:00 | XRAY ---
Indication: Short of breath and cough. Comparison: January 21, 2021. Portable chest again demonstrates normal heart, lungs, and bony thorax with incidental tiny calcified granulomas.
== END 2021-02-28 20:27 | disposition home or self-care (01) ==
LOC: ED 17:40
DX: J06.9 Acute upper respiratory infection, unspecified (principal); E87.6 Hypokalemia; R05.9 Cough, unspecified; R43.9 Unspecified disturbances of smell and taste; R51.9 Headache, unspecified; M79.10 Myalgia, unspecified site; J45.909 Unspecified asthma, uncomplicated; G62.9 Polyneuropathy, unspecified; Z79.52 Long term (current) use of systemic steroids; Z72.0 Tobacco use
CPT/HCPCS: 0241U; 36000; 36415; 71045; 80053; 82728; 83605; 83615; 84484; 85025; 85379; 86308; 87040; 87651; 93005; 94760; 96365; 99284; J0696; A9270-GY

== ENCOUNTER 2021-06-07 11:03 | Emergency (ER) | payer OTHER ==
--- NOTE | 2021-06-07 11:05 | ERPHSYRPT ---
- History of Present Illness Time Seen by Provider: 06/07/21 11:04 Source: patient Exam Limitations: no limitations Physician History: This is a 36-year-old female has multiple complaints that are chronic. She has had a mild chronic cough, she has right chest wall discomfort that is intermittent for the last 2 months. She has intermittent neck pain when she wakes up in the morning and over the last several days. She has not had a fever. She has no chest pain. She is a chronic every day smoker of cigarettes. She specifically asked for prescription for steroids. Her cough is nonproductive. Timing/Duration: other (Chronic) Cough Quality/Degree: mild Possible Cause: frequent episodes, chronic episodes Modifying Factors: Improves With: coughing (Mild) Associated Symptoms: cough, No fever, No chills, No chest pain/soreness, No shortness of breath, No sore throat Allergies/Adverse Reactions: ciprofloxacin [From Cipro] Allergy (Verified 06/07/21 11:16) sulfamethoxazole [From Bactrim] Allergy (Verified 06/07/21 11:16) trimethoprim [From Bactrim] Allergy (Verified 06/07/21 11:16) Home Medications: Albuterol 2.5 mg/3 ml Neb [Proventil 2.5 mg/3 ml Neb] 1 vial IH Q4-6HPRN PRN 07/06/20 [History] Albuterol Sulfate [Ventolin Hfa] 2 puffs IH Q4H PRN 07/06/20 [History] Budesonide/Formoterol Fumarate [Symbicort 160-4.5 Mcg Inhaler] 2 puffs IH BID 07/06/20 [History] Escitalopram Oxalate 10 mg [Lexapro 10 MG] 10 mg PO DAILY 07/06/20 [History] Gabapentin 400 mg [Neurontin 400 MG] 400 mg PO TID 07/06/20 [History] hydrOXYzine HCL [Hydroxyzine HCl] 25 mg PO TID PRN 07/06/20 [History] Hx Tetanus, Diphtheria Vaccination/Date Given: Yes Hx Influenza Vaccination/Date Given: No Hx Pneumococcal Vaccination/Date Given: No Travel Risk - International Travel Have you traveled outside of the country in past 3 weeks: No - Coronavirus Screening Are you exhibiting any of the following symptoms?: No Close contact with a COVID-19 positive Pt in past 14-21 Days: No - Vaccine Status Have you recieved a Covid-19 vaccination: No - Review of Systems Constitutional: No Symptoms Eyes: No Symptoms Ears, Nose, & Throat: No Symptoms Respiratory: Cough, No Dyspnea Cardiac: No Symptoms, No Chest Pain Abdominal/Gastrointestinal: No Symptoms Genitourinary Symptoms: No Symptoms Musculoskeletal: No Symptoms Skin: No Symptoms Neurological: No Symptoms Psychological: No Symptoms Endocrine: No Symptoms Hematologic/Lymphatic: No Symptoms Immunological/Allergic: No Symptoms All Other Systems: Reviewed and Negative - Past Medical History Pertinent Past Medical History: Yes Neurological History: Peripheral Neuropathy Respiratory History: Asthma Psycho-Social History: Anxiety, Depression, Other - Past Surgical History Past Surgical History: Yes Musculoskeletal: Other Female Surgical History: Hysterectomy, Section Other Surgical History: 3- sections, finger surgery - Social History Smoking Status: Current every day smoker Exposure to second hand smoke: Yes Drug Use: none Patient Lives Alone: No - Nursing Vital Signs Nursing Vital Signs: Initial Vital Signs Temperature 97.2 F 06/07/21 11:05 Pulse Rate 77 06/07/21 11:05 Blood Pressure 113/79 06/07/21 11:05 O2 Sat by Pulse Oximetry 98 06/07/21 11:05 Pain Scale Pain Intensity 7 - Physical Exam General Appearance: no apparent distress, alert, anxiety Eye Exam: PERRL/EOMI, eyes nml inspection Ears, Nose, Throat Exam: normal ENT inspection, moist mucous membranes Neck Exam: normal inspection, non-tender, supple, full range of motion Respiratory Exam: normal breath sounds, lungs clear, airway intact, No chest tenderness, No respiratory distress Cardiovascular Exam: regular rate/rhythm, normal heart sounds, normal peripheral pulses Gastrointestinal/Abdomen Exam: soft, normal bowel sounds, No tenderness Pelvic Exam: not done Rectal Exam: not done Back Exam: normal inspection, normal range of motion, No CVA tenderness, No vertebral tenderness Extremity Exam: normal inspection, normal range of motion, pelvis stable Neurologic Exam: alert, oriented x 3, cooperative, records tech II-XII nml as tested, normal mood/affect, nml cerebellar function, nml station & gait, sensation nml Skin Exam: normal color, warm, dry Lymphatic Exam: No adenopathy SpO2 Interpretation: normal O2 Delivery: Room Air - Course Nursing assessment & vital signs reviewed: Yes Ordered Tests: Medication Summary Discontinued Medications Generic Name Dose Route Start Last Admin Trade Name [place] PRN Reason Stop Dose Admin Acetaminophen 650 mg 06/07/21 11:35 Acetaminophen 325 Mg Tablet PO 06/07/21 11:36 STAT ONE Ibuprofen 600 mg 06/07/21 11:35 Ibuprofen 600 Mg Tablet PO 06/07/21 11:36 STAT ONE - Progress Progress: unchanged Air Movement: good Progress Note: 06/07/21 11:39 Medical decision making: This patient has chronic complaints. There is is no emergency issue today. Patient has chronic mild intermittent cough. Her right lateral chest wall discomfort that is been present for 2 months that is intermittent and not associated with any fever or productive cough is likely secondary to her cough. The patient has asthma and that is probably the cause of her cough. She continues to smoke cigarettes daily. She has a chronic bronchitis Blood Culture(s) Obtained: No Antibiotics given: No Counseled pt/family regarding: diagnosis, need for follow-up - Departure Departure Disposition: Home Clinical Impression: Chronic bronchitis Condition: Stable Critical Care Time: No Referrals: RILEY MATHEW NP [Primary Care Provider] - Follow up/PCP as directed Additional Instructions: Take your medications as prescribed follow-up with your primary prescribing provider for further evaluation and management. Prescriptions: Prednisone 10 mg [Deltasone 10 mg] 10 mg PO TID #12 tablet
[2021-06-07 11:15] VITALS: BP 113/79; O2SAT 99
[2021-06-07] MEDS ORDERED: MOTRIN 600 MG PO ONE (11:35)
[2021-06-07] MEDS ORDERED: TYLENOL 325 MG PO ONE (11:35)
[2021-06-07] MEDS ORDERED: TYLENOL 325 MG ONE (11:40)
[2021-06-07] MEDS ORDERED: MOTRIN 600 MG ONE (11:40)
[2021-06-07 11:46] VITALS: PULSE 68
== END 2021-06-07 11:46 | disposition home or self-care (01) ==
LOC: ED 11:03
DX: J42 Unspecified chronic bronchitis (principal); R05.3 Chronic cough; R07.89 Other chest pain; M54.2 Cervicalgia; J45.909 Unspecified asthma, uncomplicated; Z72.0 Tobacco use; Z79.899 Other long term (current) drug therapy; Z79.52 Long term (current) use of systemic steroids
CPT/HCPCS: 99283; A9270-GY

== ENCOUNTER 2021-10-13 14:36 | Emergency (ER) | payer OTHER ==
[2021-10-13 14:59] VITALS: O2SAT 98
[2021-10-13] MEDS ORDERED: MORPHINE SULFATE 4 MG INJ IM ONE (15:16)
[2021-10-13] MEDS ORDERED: TORAdol 30 mg Injection IM ONE (15:16)
[2021-10-13] MEDS ORDERED: Xylocaine 2% JELLY TOP STA (15:17)
[2021-10-13] MEDS ORDERED: BACIGUENT PACKET TP ONE (15:17)
[2021-10-13] MEDS ORDERED: XYLOCAINE VISCOUS 2% 15 ML CUP ONE (15:24)
[2021-10-13] MEDS ORDERED: MORPHINE SULFATE 4 MG INJ ONE (15:24)
[2021-10-13] MEDS ORDERED: BACIGUENT PACKET ONE (15:24)
[2021-10-13] MEDS ORDERED: TORAdol 30 mg Injection ONE (15:24)
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
[2021-10-13 15:37] VITALS: BP 102/70; PULSE 80
== END 2021-10-13 16:10 | disposition home or self-care (01) ==
LOC: ED 14:36
DX: T24.131A Burn of first degree of right lower leg, initial encounter (principal); T79.9XXA Unspecified early complication of trauma, initial encounter; L03.115 Cellulitis of right lower limb; X17.XXXA Contact with hot engines, machinery and tools, initial encounter; Z72.0 Tobacco use; Z28.310 Unvaccinated for COVID-19
CPT/HCPCS: 96372; 99283; J1885; J2270; A9270-GY

== ENCOUNTER 2021-10-22 06:18 | Emergency (ER) | payer OTHER ==
[2021-10-22 06:27] VITALS: BP 112/66; PULSE 87; O2SAT 99
[2021-10-22] MEDS ORDERED: TORAdol 30 mg Injection IM ONE (06:30)
[2021-10-22] MEDS ORDERED: TORAdol 30 mg Injection ONE (06:34)
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
== END 2021-10-22 06:52 | disposition home or self-care (01) ==
LOC: ED 06:18
DX: T24.231D Burn of second degree of right lower leg, subsequent encounter (principal); V00-Y99 External causes of morbidity; M79.661 Pain in right lower leg; Z72.0 Tobacco use; Z79.899 Other long term (current) drug therapy; Z28.310 Unvaccinated for COVID-19
CPT/HCPCS: 96372; 99282; J1885

== ENCOUNTER 2022-01-08 17:47 | Emergency (ER) | payer OTHER ==
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
[2022-01-08] MEDS ORDERED: TORAdol 30 mg Injection IM ONE (18:15)
[2022-01-08] MEDS ORDERED: TORAdol 30 mg Injection ONE (18:18)
[2022-01-08 18:28] VITALS: BP 156/61; PULSE 72; O2SAT 99
--- NOTE | 2022-01-09 08:36 | XRAY ---
Indication: Pain following injury. Comparison: None 3 nonweightbearing views left foot demonstrates small plantar heel spur. Adjacently there is a 2 mm linear radiopacity either foreign body versus plantar aponeurosis calcification from old injury/inflammation. No other bony, articular, or soft tissue abnormalities.
== END 2022-01-08 18:30 | disposition home or self-care (01) ==
LOC: ED 17:47
DX: S99.922A Unspecified injury of left foot, initial encounter (principal); W22.03XA Walked into furniture, initial encounter; M25.572 Pain in left ankle and joints of left foot; Z72.0 Tobacco use; Z79.899 Other long term (current) drug therapy; Z28.310 Unvaccinated for COVID-19
CPT/HCPCS: 73630; 96372; 99283; J1885

== ENCOUNTER 2022-11-20 00:12 | Emergency (ER) | payer OTHER ==
[2022-11-20] MEDS ORDERED: OXYCODONE-ACETAMINOPHEN 10-325 PO STA (00:34)
[2022-11-20] MEDS ORDERED: MOTRIN 600 MG PO ONE (00:34)
[2022-11-20] MEDS ORDERED: OXYCODONE-ACETAMINOPHEN 10-325 ONE (00:38)
[2022-11-20] MEDS ORDERED: MOTRIN 600 MG ONE (00:38)
--- NOTE | 2022-11-20 00:41 | ERPHSYRPT ---
- History of Present Illness Time Seen by Provider: 11/20/22 00:20 Source: patient Exam Limitations: no limitations Patient Subjective Stated Complaint: hurt my finger today playing football with the kids, I have so much arthritis in my hands anyway Triage Nursing Assessment: pt ambulated into ER without diff. Pt c/o pain to rt ring finger and lt ring finger. Pt was playing football today in the yard with her kids. Left ring finger has a bruise and red area noted up the lateral side of finger with slight swelling noted at knuckle. Pt has slight swelling noted to right ring finger knuckle. Pt states, "I cannot bend them. I have rheumat oid arthritis so bad". Physician History: Patient injured her left ring finger 8 hours prior to coming to the emergency department when playing football with her kids when the football headache, and that she has been having intermittent pain to the right ring finger for 18 years with pain to that finger over the past 1 day but has not had any evaluations of it. Occurred: this afternoon Method of Injury: direct blow Quality: constant Severity of Pain-Max: severe Severity of Pain-Current: severe Extremities Pain Location: 4th finger: bilateral (Traumatic injury today to the left; right fourth finger has been a problem for 18 years) Modifying Factors: Worsens With: movement, pain medication (No relief with Tylenol and Motrin this afternoon) Associated Symptoms: No back pain, No chills, No chest discomfort, No chest pain, No dyspnea, No fever, No jaw pain, No nausea, No neck pain, No sweating, No short of breath, No vomiting Allergies/Adverse Reactions: ciprofloxacin [From Cipro] Allergy (Verified 11/20/22 00:27) sulfamethoxazole [From Bactrim] Allergy (Verified 11/20/22 00:27) trimethoprim [From Bactrim] Allergy (Verified 11/20/22 00:27) Home Medications: Albuterol Sulfate [Ventolin Hfa] 2 puffs IH Q4H PRN 07/06/20 [History] Hx Tetanus, Diphtheria Vaccination/Date Given: Yes Hx Influenza Vaccination/Date Given: Yes Hx Pneumococcal Vaccination/Date Given: No Travel Risk - International Travel Have you traveled outside of the country in past 3 weeks: No - Coronavirus Screening Are you exhibiting any of the following symptoms?: No Close contact with a COVID-19 positive Pt in past 14-21 Days: No - Vaccine Status Have you recieved a Covid-19 vaccination: No - Review of Systems Constitutional: No Fever, No Chills Eyes: No Eye Pain, No Vision Changes Ears, Nose, & Throat: No Ear Pain, No Nose Congestion, No Nose Discharge, No Epistaxis, No Mouth Pain, No Loose Teeth Respiratory: No Cough, No Dyspnea Cardiac: No Chest Pain, No Edema, No Syncope Abdominal/Gastrointestinal: No Abdominal Pain, No Nausea, No Vomiting, No Hematochezia Genitourinary Symptoms: No Dysuria, No Hematuria, No Flank Pain Musculoskeletal: No Back Pain, No Neck Pain Skin: No Rash Neurological: No Dizziness, No Focal Weakness, No Sensory Changes Psychological: No Symptoms Endocrine: No Symptoms Hematologic/Lymphatic: No Easy Bleeding, No Easy Bruising All Other Systems: Reviewed and Negative - Past Medical History Pertinent Past Medical History: Yes Neurological History: Peripheral Neuropathy Respiratory History: Asthma Musculoskeletal History: Rheumatoid Arthritis Psycho-Social History: Anxiety, Depression, Other - Past Surgical History Past Surgical History: Yes Musculoskeletal: Other Female Surgical History: Hysterectomy, Section Other Surgical History: 3- sections, finger surgery - Social History Smoking Status: Current every day smoker How long have you smoked: 1 Exposure to second hand smoke: Yes Drug Use: none Patient Lives Alone: No Significant Family History: no pertinent family hx - Female History Hx Now: No - Nursing Vital Signs Nursing Vital Signs: Initial Vital Signs Temperature 97.3 F 11/20/22 00:18 Pulse Rate 90 11/20/22 00:18 Respiratory Rate 18 11/20/22 00:18 Blood Pressure 102/61 11/20/22 00:18 O2 Sat by Pulse Oximetry 100 11/20/22 00:18 Pain Scale Pain Intensity 8 - Physical Exam General Appearance: no apparent distress, alert Eyes, Ears, Nose, Throat Exam: moist mucous membranes Neck Exam: normal inspection, non-tender, supple Cardiovascular/Respiratory Exam: chest non-tender, normal breath sounds, regular rate/rhythm, no respiratory distress Abdominal Exam: non-tender, soft, No guarding, No tenderness Back Exam: normal inspection, No CVA tenderness, No vertebral tenderness Shoulder Exam: normal inspection, non-tender, no evidence of injury, normal ROM Elbow/Forearm Exam: normal inspection, non-tender, no evidence of injury, normal ROM Wrist Exam: normal inspection, non-tender, no evidence of injury, normal ROM, No bone tenderness, No pain, No soft tissue tenderness Hand Exam: normal ROM (All digits except bilateral fourth digits), bone tenderness (Bilateral fourth digits), limited ROM (Bilateral fourth digits), soft tissue tenderness (Bilateral fourth digits), stiffness (Bilateral fourth digits), swelling (Bilateral fourth digits), No infection, No laceration Neuro/Tendon Exam: normal sensation, normal motor functions, normal tendon functions Mental Status Exam: alert, oriented x 3, cooperative Skin Exam: normal color, warm, dry, No jaundice, No cyanosis, No ecchymosis SpO2 Interpretation: normal SpO2: 100 O2 Delivery: Room Air - Course Nursing assessment & vital signs reviewed: Yes - Radiology Exams Left Hand X-ray Interpretation: Interpreted by me, Reviewed by me, No Fracture, Other (Fourth digit soft tissue swelling) Right Hand X-ray Interpretation: Interpreted by me, Reviewed by me, No Fracture, Other (mild soft tissue swelling of the fourth digit proximal phalanx) Ordered Tests: Active Orders 24 hr Category Date Time Status HAND (MINIMUM 3 VIEWS) Stat Exams 11/20/22 00:35 Taken HAND (MINIMUM 3 VIEWS) Stat Exams 11/20/22 00:35 Taken Medication Summary Discontinued Medications Generic Name Dose Route Start Last Admin Trade Name Dakota PRSandy Reason Stop Dose Admin Ibuprofen 600 mg 11/20/22 00:34 11/20/22 00:39 Ibuprofen 600 Mg Tablet PO 11/20/22 00:35 600 mg STAT ONE Administration Ibuprofen Confirm 11/20/22 00:38 Ibuprofen 600 Mg Tablet Administered 11/20/22 00:39 Dose 600 mg .ROUTE .STK-MED ONE Oxycodone/Acetaminophen 1 tab 11/20/22 00:34 11/20/22 00:39 Oxycodone / Apap 10/325 Mg 1 Tablet PO 11/20/22 00:35 1 tab STAT STA Administration Oxycodone/Acetaminophen Confirm 11/20/22 00:38 Oxycodone / Apap 10/325 Mg 1 Tablet Administered 11/20/22 00:39 Dose 1 tab .ROUTE .STK-MED ONE - Progress Progress: improved Progress Note: 11/20/22 01:05 Pain is beginning to improve 11/20/22 01:11 Patient had an injury while playing football with her kids earlier today on her left ring finger causing pain and swelling that she could not sleep so she came to the emergency room for further evaluation. She also wanted evaluation of her right ring finger also since she had no specific traumatic injury but had a flare of her pain over the past 1 day has been an issue its been bothering her for the last 18 years. Patient had no other concerning review of systems or physical exam findings, and the pain was localized to the proximal phalanges of bilateral fourth digits on the hands, so x-rays of bilateral hands were performed which were negative for any fractures or dislocations. Patient was given 1 Motrin and 1 Percocet here in the emergency room which helped her pain, so she will be discharged home prescription for Mobic 50 mg tablets to do 1 tab once daily for pain control as well as instructions on rest, ice, cara taping to the neighboring third digit and elevation as needed. Patient was given referral to primary care to follow-up with as well as orthopedic clinic if this continues to bother her next 3 days. We will notify her if radiology sees anything different on my interpretation the changes clinical management. Patient is return back to the nearest emergency room if she has any new or worsening swelling to any joints, new fever, new breakdown skin, new loss of strength or sensation in her fingers or hands or wrists, or any other concerning signs or symptoms that were not present at today's emergency room visit for immediate reevaluation in the nearest emergency department Counseled pt/family regarding: diagnosis, need for follow-up, rad results Medical Desision Making - Diagnostic Testing Radiological Interpretation: Interpreted by me, Reviewed by me - Risk of complications Minimal Risk: Minimal risk of morbidity The pt has a mod risk of morbidity or mortality based on: Need for prescription drug management - Departure Departure Disposition: Home Clinical Impression: Pain in finger of right hand Contusion of ring finger without damage to nail Qualifiers: Encounter type: initial encounter Laterality: left Qualified Code(s): S60.042A - Contusion of left ring finger without damage to nail, initial encounter Condition: Fair Critical Care Time: No Referrals: DOCTOR,NO FAMILY [Primary Care Provider] - Follow up/PCP as directed [facility] - MARCELA ZURITA NP [NON-STAFF PHY W/O PRIVILEGES] - Follow Up with PCP/3 days NNEKA BINGHAM MD [ACTIVE STAFF] - Follow Up with PCP/3 days (Family Physician for your reference) Instructions: Finger Sprain (DC), Finger Fracture (DC) Additional Instructions: Your x-rays were read negative for any fractures or dislocations on today's visit. Return back to the nearest emergency department if you have any loss of function, sensation or strength to your hands or fingers, but is important for you to follow-up with a primary care provider to continue evaluating your pain and other medical issues. Prescriptions: Meloxicam [Mobic] 1 tab PO DAILY PRN #14 tablet PRN Reason: Pain
[2022-11-20 01:08] VITALS: TEMP 97.3
[2022-11-20 01:13] VITALS: BP 92/48; PULSE 64; RESP 17
[2022-11-20 01:14] VITALS: O2SAT 100
--- NOTE | 2022-11-20 09:02 | XRAY ---
Indication: 4th digit pain and swelling. Comparison: None 3 view right hand demonstrates mild 4th proximal finger soft tissue swelling. No other bony, articular, or soft tissue abnormalities.
--- NOTE | 2022-11-20 09:04 | XRAY ---
Indication: 4th finger pain following trauma. Comparison: None 3 view left hand demonstrates minimal 4th proximal finger soft tissue swelling. No other bony, articular, or soft tissue abnormalities.
== END 2022-11-20 01:12 | disposition home or self-care (01) ==
LOC: ED 00:12
DX: S60.042A Contusion of left ring finger without damage to nail, initial encounter (principal); W21.01XA Struck by football, initial encounter; Y93.61 Activity, american tackle football; Y92.007 Garden or yard of unspecified non-institutional (private) residence as the place of occurrence of the external cause; M79.645 Pain in left finger(s); Z79.899 Other long term (current) drug therapy; Z28.310 Unvaccinated for COVID-19; Z72.0 Tobacco use
CPT/HCPCS: 73130; 99283; A9270-GY

== ENCOUNTER 2023-03-12 20:22 | Emergency (ER) | payer OTHER ==
--- NOTE | 2023-03-12 20:34 | ERPHSYRPT ---
- History of Present Illness Time Seen by Provider: 03/12/23 20:34 Source: patient Exam Limitations: no limitations Physician History: This is a 37-year-old white female patient who just prior to arrival to the emergency department, the patient's friends baby accidentally poked her finger into this patient's left eye. Patient has light sensitivity, burning pain and tearing ever since this occurred. Timing/Duration: today Location: left eye Severity: moderate Apparent Injury: possibly Associated Symptoms: pain, burning, sensitivity to light, other (Tearing) Visual Assistive Devices: None Trauma: Yes Allergies/Adverse Reactions: ciprofloxacin [From Cipro] Allergy (Verified 03/12/23 20:52) sulfamethoxazole [From Bactrim] Allergy (Verified 03/12/23 20:52) trimethoprim [From Bactrim] Allergy (Verified 03/12/23 20:52) Hx Tetanus, Diphtheria Vaccination/Date Given: Yes Hx Influenza Vaccination/Date Given: No Hx Pneumococcal Vaccination/Date Given: No Travel Risk - International Travel Have you traveled outside of the country in past 3 weeks: No - Coronavirus Screening Are you exhibiting any of the following symptoms?: No Close contact with a COVID-19 positive Pt in past 14-21 Days: No - Vaccine Status Have you recieved a Covid-19 vaccination: No - Review of Systems Constitutional: No Symptoms Eyes: Eye Pain (Left), Tearing (Left eye), Foreign Body Sensation (Left eye) Ears, Nose, & Throat: No Symptoms Respiratory: No Symptoms Cardiac: No Symptoms Abdominal/Gastrointestinal: No Symptoms Genitourinary Symptoms: No Symptoms Musculoskeletal: No Symptoms Skin: No Symptoms Neurological: No Symptoms Psychological: No Symptoms Endocrine: No Symptoms Hematologic/Lymphatic: No Symptoms Immunological/Allergic: No Symptoms All Other Systems: Reviewed and Negative - Past Medical History Pertinent Past Medical History: Yes Neurological History: Peripheral Neuropathy Respiratory History: Asthma Musculoskeletal History: Rheumatoid Arthritis Psycho-Social History: Anxiety, Depression, Other - Past Surgical History Past Surgical History: Yes Musculoskeletal: Other Female Surgical History: Hysterectomy, Section Other Surgical History: 3- sections, finger surgery - Social History Smoking Status: Current every day smoker How long have you smoked: 20 yrs Exposure to second hand smoke: Yes Drug Use: none Patient Lives Alone: No Significant Family History: no pertinent family hx - Nursing Vital Signs Nursing Vital Signs: Initial Vital Signs Temperature 96.7 F 03/12/23 20:30 Pulse Rate 78 03/12/23 20:30 Respiratory Rate 16 03/12/23 20:30 Blood Pressure 120/75 03/12/23 20:30 O2 Sat by Pulse Oximetry 99 03/12/23 20:30 Pain Scale Pain Intensity 9 - Physical Exam General Appearance: mild distress, alert, anxiety Eye Exam: right eye: normal inspection, left eye: corneal abrasion, bilateral eye: PERRL, EOMI Ears, Nose, Throat Exam: normal ENT inspection, moist mucous membranes Neck Exam: normal inspection, non-tender, supple, full range of motion Respiratory Exam: airway intact, No chest tenderness, No respiratory distress Gastrointestinal Exam: No tenderness Extremity Exam: normal inspection, normal range of motion, pelvis stable Neurologic: alert, cooperative, 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 No foreign body - Course Nursing assessment & vital signs reviewed: Yes Ordered Tests: Active Orders 24 hr Category Date Time Status Visual Acuity STAT Care 03/12/23 21:02 Active Medication Summary Discontinued Medications Generic Name Dose Route Start Last Admin Trade Name Dakota PRN Reason Stop Dose Admin Hydrocodone Bitart/Acetaminophen 2 tab 03/12/23 20:58 Hydrocodone/Apap 5/325 1 Tab Tablet PO 03/12/23 20:59 SENT HOME W/ PATIENT ONE Erythromycin 1 gm 03/12/23 20:56 Erythromycin Base 1 Gm Tube Eye Ointment OP 03/12/23 20:57 STAT STA Eye Irrigation Solution Confirm 03/12/23 20:39 Sodium/Potassium/Marko/Magnesium 30 Ml Eye Wash Administered 03/12/23 20:40 Dose 30 ml .ROUTE .STK-MED ONE Eye Irrigation Solution 15 ml 03/12/23 21:02 03/12/23 21:04 Sodium/Potassium/Marko/Magnesium 30 Ml Eye Wash OP 03/12/23 21:03 15 ml STAT ONE Administration Fluorescein Sodium Confirm 03/12/23 20:39 Fluorescein Sodium 1 Mg/Strip Strip Administered 03/12/23 20:40 Dose 1 mg OP .STK-MED ONE Fluorescein Sodium 1 mg 03/12/23 21:02 03/12/23 21:04 Fluorescein Sodium 1 Mg/Strip Strip OP 03/12/23 21:03 1 mg STAT ONE Administration Tetracaine HCl Confirm 03/12/23 20:39 Tetracaine Hcl/Pf 4 Ml Bottle Administered 03/12/23 20:40 Dose 4 ml OP .STK-MED ONE Tetracaine HCl 4 ml 03/12/23 21:02 03/12/23 21:04 Tetracaine Hcl/Pf 4 Ml Bottle OP 03/12/23 21:03 4 ml STAT STA Administration - Progress Progress: improved, pain not gone completely, re-examined Progress Note: 03/12/23 21:11 This patient's medical issue is 1 of low complexity. The level complex in the workup performed is based on review of the patient's past medical history, review of patient's medication list, review of patient drug allergy list, history present illness and physical findings on examination. The workup in this patient includes fluorescein test. We also placed erythromycin ophthalmologic ointment into her left eye. Counseled pt/family regarding: diagnosis, need for follow-up - Departure Departure Disposition: Home Clinical Impression: Left corneal abrasion Condition: Stable Critical Care Time: No Referrals: RILEY MATHEW NP [Primary Care Provider] - Follow up/PCP as directed Additional Instructions: Use eye ointment as prescribed. Call cable repairer tomorrow, 03/13/2023, for further evaluation management. Prescriptions: Erythromycin Base 3.5 gm [Erythromycin 3.5 GM OPHTH.] 3.5 gm OP 5XD #1 u nit
[2023-03-12 20:38] VITALS: RESP 16; TEMP 96.7
[2023-03-12] MEDS ORDERED: Fluor-I-Strip/Ful-Flo OP ONE ×2 (20:39→21:02)
[2023-03-12] MEDS ORDERED: Eye-Stream Solution ONE (20:39)
[2023-03-12] MEDS ORDERED: TETRACAINE 0.5% STERI-UNIT SOL OP ONE (20:39)
[2023-03-12] MEDS ORDERED: Erythromycin 1 GM OP STA (20:56)
[2023-03-12] MEDS ORDERED: NORCO 5/325 MG PO ONE (20:58)
[2023-03-12] MEDS ORDERED: TETRACAINE 0.5% STERI-UNIT SOL OP STA (21:02)
[2023-03-12] MEDS ORDERED: Eye-Stream Solution OP ONE (21:02)
[2023-03-12] MEDS ORDERED: Erythromycin 1 GM ONE (21:23)
[2023-03-12] MEDS ORDERED: NORCO 5/325 MG ONE (21:24)
[2023-03-12 21:35] VITALS: BP 120/78; PULSE 71; O2SAT 100
== END 2023-03-12 21:34 | disposition home or self-care (01) ==
LOC: ED 20:22
DX: S05.02XA Injury of conjunctiva and corneal abrasion without foreign body, left eye, initial encounter (principal); W50.0XXA Accidental hit or strike by another person, initial encounter; Z28.310 Unvaccinated for COVID-19; Z72.0 Tobacco use
CPT/HCPCS: 99281; A9270-GY

== ENCOUNTER 2023-04-30 14:22 | Emergency (ER) | payer OTHER ==
--- NOTE | 2023-04-30 14:59 | ERPHSYRPT ---
- History of Present Illness Time Seen by Provider: 04/30/23 14:40 Source: patient Exam Limitations: no limitations Patient Subjective Stated Complaint: PT states "I have been lifting alot of stuff and my back is killing me. I need a pain shot or pill bad." Triage Nursing Assessment: Pt presented alert and oriented X 3, skin pwd. Pt ambulates with an unsteady gait, pt has slight slurred speech and yawning as she speaks. Physician History: Patient is a 38-year-old white female who has been lifting lots of furniture she says including couches etc. and now has low back pain.She also reports she occasionally has falls because her legs seem to give out she has had back problems for some time now. She also denies any bowel or bladder problems. Timing/Duration: day(s) (3) Method of Injury: bending, lifting Quality: throbbing Back Pain Location: lumbar spine Back Pain Radiation: buttocks Severity of Pain-Max: moderate Severity of Pain-Current: mild Modifying Factors: Improves With: movement, pain medication Associated Symptoms: numbness in legs/feet, lower back pain, muscle spasms, No urinary incontinence, No loss of bowel control, No problems urinating Previous symptoms: same symptoms as today Allergies/Adverse Reactions: ciprofloxacin [From Cipro] Allergy (Verified 03/12/23 20:52) sulfamethoxazole [From Bactrim] Allergy (Verified 03/12/23 20:52) trimethoprim [From Bactrim] Allergy (Verified 03/12/23 20:52) Hx Tetanus, Diphtheria Vaccination/Date Given: Yes Hx Influenza Vaccination/Date Given: No Hx Pneumococcal Vaccination/Date Given: No Immunizations Up to Date: No Travel Risk - International Travel Have you traveled outside of the country in past 3 weeks: No - Coronavirus Screening Are you exhibiting any of the following symptoms?: No Close contact with a COVID-19 positive Pt in past 14-21 Days: No - Vaccine Status Have you recieved a Covid-19 vaccination: No - Review of Systems Constitutional: No Fever, No Chills Eyes: No Symptoms Ears, Nose, & Throat: No Symptoms Respiratory: No Cough, No Dyspnea Cardiac: No Chest Pain, No Edema, No Syncope Abdominal/Gastrointestinal: No Abdominal Pain, No Nausea, No Vomiting, No Diarrhea Genitourinary Symptoms: No Dysuria Musculoskeletal: Back Pain, Myalgias, No Neck Pain Skin: No Rash Neurological: No Dizziness, No Focal Weakness, No Sensory Changes Psychological: No Symptoms Endocrine: No Symptoms All Other Systems: Reviewed and Negative - Past Medical History Pertinent Past Medical History: Yes Neurological History: Peripheral Neuropathy Respiratory History: Asthma Musculoskeletal History: Rheumatoid Arthritis Psycho-Social History: Anxiety, Depression, Other - Past Surgical History Past Surgical History: Yes Musculoskeletal: Other Female Surgical History: Hysterectomy, Section Other Surgical History: 3- sections, finger surgery - Social History Smoking Status: Current every day smoker How long have you smoked: 20 yrs Exposure to second hand smoke: Yes Drug Use: none Patient Lives Alone: No Significant Family History: no pertinent family hx - Female History Hx Last Menstrual Period: hysterectomy Hx Now: No - Nursing Vital Signs Nursing Vital Signs: Initial Vital Signs Temperature 97.8 F 04/30/23 14:32 Pulse Rate 88 04/30/23 14:32 Respiratory Rate 20 04/30/23 14:32 Blood Pressure 126/76 04/30/23 14:32 O2 Sat by Pulse Oximetry 95 04/30/23 14:32 Pain Scale Pain Intensity 4 - Physical Exam General Appearance: mild distress Eye Exam: PERRL/EOMI, eyes nml inspection Ears, Nose, Throat Exam: normal ENT inspection Neck Exam: normal inspection, non-tender, supple, full range of motion, No meningismus, No midline tenderness Respiratory Exam: normal breath sounds Cardiovascular Exam: regular rate/rhythm, normal heart sounds Gastrointestinal Exam: soft, No tenderness, No mass Back Exam: muscle spasm Extremity Exam: normal inspection, normal range of motion, other (Straight leg raising is negative negative), No calf tenderness, No pedal edema Neurologic Exam: alert, oriented x 3, cooperative, 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, no rmal mood/affect, nml station & gait, sensation nml, No motor deficits Skin Exam: normal color, warm, dry, No rash SpO2 Interpretation: normal SpO2: 95 O2 Delivery: Room Air - Course Nursing assessment & vital signs reviewed: Yes - CT Exams Lumbar Spine CT Interpretation: Other (I reviewed x-rays CT) Ordered Tests: Active Orders 24 hr Category Date Time Status Clean Catch Urine Specimen STAT Care 04/30/23 14:38 Active LUMBAR SPINE W/O [CT] Stat Exams 04/30/23 14:39 Completed Alcohol [ETHYL ALCOHOL] Stat Lab 04/30/23 14:55 Completed UA W/RFX UR CULTURE Stat Lab 04/30/23 14:52 Ordered Urine Triage Profile Stat Lab 04/30/23 14:53 Completed Medication Summary Discontinued Medications Generic Name Dose Route Start Last Admin Trade Name Dakota PRN Reason Stop Dose Admin Ketorolac Tromethamine 30 mg 04/30/23 15:24 04/30/23 15:26 Ketorolac Tromethamine 30 Mg/Ml Inj IM 04/30/23 15:25 30 mg STAT ONE Administration Ketorolac Tromethamine Confirm 04/30/23 15:26 Ketorolac Tromethamine 30 Mg/Ml Inj Administered 04/30/23 15:27 Dose 30 mg .ROUTE .STK-MED ONE Lab/Rad Data: Laboratory Results 04/30/23 04/30/23 Range/Units 14:55 14:53 Urine Opiates Level POSITIVE A (NEGATIVE) Ur Methadone NEGATIVE (NEGATIVE) Urine Barbiturates NEGATIVE (NEGATIVE) Ur Phencyclidine (PCP) NEGATIVE (NEGATIVE) Urine Amphetamine NEGATIVE (NEGATIVE) U Benzodiazepine Level NEGATIVE (NEGATIVE) Urine Cocaine NEGATIVE (NEGATIVE) Urine Marijuana (THC) POSITIVE A (NEGATIVE) Ethyl Alcohol < 10 (0-10) mg/dL - Progress Progress: improved Medical Desision Making - Diagnostic Testing Radiological Interpretation: Reviewed by me - Risk of complications Minimal Risk: Minimal risk of morbidity - Departure Departure Disposition: Home Clinical Impression: Lumbar strain Condition: Stable Critical Care Time: No Referrals: RILEY MATHEW NP [Primary Care Provider] - Follow up/PCP as directed Instructions: Low Back Pain (DC) Prescriptions: Cyclobenzaprine HCl 10 mg [Cyclobenzaprine 10 MG] 10 mg PO DAILY 4 Days #4 tablet Prednisone 20 mg [Deltasone 20 mg] 20 mg PO DAILY 4 Days #4 tablet Diclofenac Sodium 50 mg [Voltaren 50 mg] 50 mg PO TID 5 Days #15 tablet
[2023-04-30] MEDS: TORAdol 30 mg Injection IM ONE (15:26)
[2023-04-30] MEDS ORDERED: TORAdol 30 mg Injection ONE (15:26)
[2023-04-30 15:32] LABS: Amphetamine,Urine NEGATIVE (NEGATIVE); Barbiturate,Urine NEGATIVE (NEGATIVE); Benzodiazepine,Urine NEGATIVE (NEGATIVE); Cocaine,Urine NEGATIVE (NEGATIVE); Methadone,Urine NEGATIVE (NEGATIVE); Opiate,Urine POSITIVE (NEGATIVE); PCP,Urine NEGATIVE (NEGATIVE); THC,Urine POSITIVE (NEGATIVE)
--- NOTE | 2023-04-30 16:05 | XRAY ---
Indication: Low back pain radiating right leg. Multiple contiguous axial images obtained through the lumbar spine. Sagittal and coronal reformatted images obtained. Comparison: None No large disc herniation or spinal canal stenosis. Facets are symmetric. Sagittal and coronal reformatted images demonstrate normal lumbar lordosis with minimal dextroscoliosis centered at L1. Vertebral body heights/disc spaces maintained. No acute compression fracture or subluxation. Visualized noncontrasted soft tissues are unremarkable. Impression: Minimal dextroscoliosis. Remaining CT lumbar spine without contrast exam is normal.
[2023-04-30 16:38] VITALS: BP 132/74; PULSE 68; RESP 22; TEMP 97.2
[2023-04-30 16:42] VITALS: O2SAT 95
== END 2023-04-30 16:48 | disposition home or self-care (01) ==
LOC: ED 14:22
DX: S39.012A Strain of muscle, fascia and tendon of lower back, initial encounter (principal); X50.0XXA Overexertion from strenuous movement or load, initial encounter; X50.3XXA Overexertion from repetitive movements, initial encounter; Z79.52 Long term (current) use of systemic steroids; Z79.899 Other long term (current) drug therapy; Z28.310 Unvaccinated for COVID-19; Z72.0 Tobacco use
CPT/HCPCS: 36415; 72131; 80307; 82077; 96372; 99283; J1885

== ENCOUNTER 2023-12-20 16:38 | Emergency (ER) | payer OTHER ==
[2023-12-20 16:59] VITALS: TEMP 97.6; O2SAT 100
[2023-12-20] MEDS ORDERED: TORAdol 30 mg Injection ONE (17:44)
[2023-12-20] MEDS ORDERED: NORCO 5/325 MG ONE ×2 (17:45→18:35)
[2023-12-20] MEDS: NORCO 5/325 MG PO ONE ×2 (17:48→18:36)
[2023-12-20] MEDS: TORAdol 30 mg Injection IM ONE (17:49)
--- NOTE | 2023-12-20 18:32 | ERPHSYRPT ---
- History of Present Illness Time Seen by Provider: 12/20/23 16:47 Source: patient Exam Limitations: no limitations Patient Subjective Stated Complaint: Fall- Right arm pain Triage Nursing Assessment: Patient ambulated back to ED and transferred self to bed. Patient A+O X 3. Patient's skin pink, warm and dry. Patient states she was cleaning her apartment and slipped on the concrete floor landing on her right arm. Patient complains of pain to right shoulder, elbow, forearm, wrist and hand 11/12. Patient has abrasion noted to right elbow. Physician History: 38 years old female right-handed dominant updated with tetanus presented in the ER after she was cleaning her apartment, floor was wet and she slipped and fell on right elbow and stand her forearm/arm as well. She has a small abrasion and swelling at the posterior elbow. Complaining of moderate to severe sharp pain with difficulty movements. Patient denies injury anywhere else. No numbness or tingling sensations in the hand. Allergies/Adverse Reactions: ciprofloxacin [From Cipro] Allergy (Verified 12/20/23 16:50) sulfamethoxazole [From Bactrim] Allergy (Verified 12/20/23 16:50) trimethoprim [From Bactrim] Allergy (Verified 12/20/23 16:50) Hx Tetanus, Diphtheria Vaccination/Date Given: Yes Hx Influenza Vaccination/Date Given: No Hx Pneumococcal Vaccination/Date Given: No Immunizations Up to Date: Yes Travel Risk - International Travel Have you traveled outside of the country in past 3 weeks: No - Emerging Infectious Disease Are you exhibiting symptoms associated with any current EIDs: No - Review of Systems Constitutional: No Symptoms Ears, Nose, & Throat: No Symptoms Respiratory: No Symptoms Cardiac: No Symptoms Abdominal/Gastrointestinal: No Symptoms Musculoskeletal: Fall, Injury, Joint Redness, Joint Pain, Joint Swelling Skin: Skin Lesions Neurological: No Symptoms Endocrine: No Symptoms - Past Medical History Pertinent Past Medical History: Yes Neurological History: Peripheral Neuropathy Respiratory History: Asthma Musculoskeletal History: Rheumatoid Arthritis Psycho-Social History: Anxiety, Depression, Other - Past Surgical History Past Surgical History: Yes Musculoskeletal: Other Female Surgical History: Hysterectomy, Section Other Surgical History: 3- sections, finger surgery Significant Family History: no pertinent family hx - Female History Hx Last Menstrual Period: total hysterectomy Hx Now: No - Social History Smoking Status: Current every day smoker How long have you smoked: 20 yrs Exposure to second hand smoke: Yes Drug Use: none Patient Lives Alone: No - Social Determinants of Health Will the patient participate in the screening: Yes Do you worry about a steady place to live?: No Do you have any problems with any of the following?: No known problems In the past 12 months,have you had to go without utilities?: No Transportation Issues: No Has anyone in your support network made you feel unsafe?: No Have you or anyone in your house had to go without enough: No - Nursing Vital Signs Nursing Vital Signs: Initial Vital Signs Temperature 97.6 F 12/20/23 16:53 Pulse Rate 67 12/20/23 16:53 Respiratory Rate 20 12/20/23 16:53 Blood Pressure 98/65 12/20/23 16:53 O2 Sat by Pulse Oximetry 100 12/20/23 16:53 Pain Scale Pain Intensity 9 - Physical Exam General Appearance: no apparent distress Eyes, Ears, Nose, Throat Exam: normal ENT inspection Neck Exam: normal inspection, full range of motion Cardiovascular/Respiratory Exam: normal breath sounds, regular rate/rhythm Shoulder Exam: normal inspection, non-tender, no evidence of injury, normal ROM Elbow/Forearm Exam: bone tenderness (All-around elbow), limited ROM, soft tissue tenderness, swelling Wrist Exam: normal inspection, no evidence of injury, normal ROM, bone tenderness Hand Exam: normal inspection, non-tender, no evidence of injury, normal ROM Neuro/Tendon Exam: normal sensation, normal motor functions, normal tendon functions Mental Status Exam: alert, oriented x 3, cooperative Skin Exam: normal color SpO2 Interpretation: normal SpO2: 100 O2 Delivery: Room Air Ordered Tests: Active Orders 24 hr Category Date Time Status Consult Ortho ROUTINE Cons 12/20/23 18:39 Completed FOREARM Stat Exams 12/20/23 16:52 Taken HAND (MINIMUM 3 VIEWS) Stat Exams 12/20/23 16:52 Taken HUMERUS Stat Exams 12/20/23 16:52 Taken Medication Summary Discontinued Medications Generic Name Dose Route Start Last Admin Trade Name Freq PRN Reason Stop Dose Admin Hydrocodone Bitart/Acetaminophen 2 tab 12/20/23 17:26 12/20/23 17:48 Hydrocodone/Apap 5/325 1 Tab Tablet PO 12/20/23 17:27 2 tab STAT ONE Administration Hydrocodone Bitart/Acetaminophen Confirm 12/20/23 17:45 Hydrocodone/Apap 5/325 1 Tab Tablet Administered 12/20/23 17:46 Dose 2 tab .ROUTE .STK-MED ONE Hydrocodone Bitart/Acetaminophen 2 tab 12/20/23 18:32 12/20/23 18:36 Hydrocodone/Apap 5/325 1 Tab Tablet PO 12/20/23 18:33 2 tab SENT HOME W/ PATIENT ONE Administration Hydrocodone Bitart/Acetaminophen Confirm 12/20/23 18:35 Hydrocodone/Apap 5/325 1 Tab Tablet Administered 12/20/23 18:36 Dose 2 tab .ROUTE .STK-MED ONE Ketorolac Tromethamine 30 mg 12/20/23 17:26 12/20/23 17:49 Ketorolac Tromethamine 30 Mg/Ml Inj IM 12/20/23 17:27 30 mg STAT ONE Administration Ketorolac Tromethamine Confirm 12/20/23 17:44 Ketorolac Tromethamine 30 Mg/Ml Inj Administered 12/20/23 17:45 Dose 30 mg .ROUTE .STK-MED ONE - Progress Progress: improved Progress Note: 12/20/23 18:30 38 years old is evaluated in the ER for ground-level fall after she slipped on a wet floor on the right elbow with injury to forearm and arm. Patient has a small abrasion/contusion of the elbow. I have given her symptomatic treatment. On reevaluation pain is better with improved mobility at the elbow. X-rays humerus, forearm and wrist are negative for acute fracture dislocation reviewed by me, official report is pending. Placed in Freddy wrap and sling, outpatient orthopedic follow-up recommended. Discussed signs symptoms of worsening needing return to ER which she seems understanding. Counseled pt/family regarding: diagnosis, need for follow-up, rad results Medical Desision Making - Diagnostic Testing Diagnostic test were ordered, analyzed, and reviewed by me: Yes Radiological Interpretation: Interpreted by me, Reviewed by me - Risk of complications The pt has a mod risk of morbidity or mortality based on: Need for prescription drug management - Departure Departure Disposition: Home Clinical Impression: Contusion, elbow, with forearm Condition: Stable Critical Care Time: No Referrals: RILEY MATHEW NP [Primary Care Provider] - Follow up with PCP 1 day LISA SORTO MD [ACTIVE STAFF] - Follow up/PCP as directed (Call for appointment for reevaluation) Instructions: Minor Contusion ED Additional Instructions: Intermittent ice application. Take Tylenol/ibuprofen as needed. Follow-up with orthopedics for reevaluation. Return to ER for any worsening. Prescriptions: Ibuprofen 600 mg PO Q6HPRN PRN 10 Days #20 tablet PRN Reason: Pain
[2023-12-20 18:44] VITALS: BP 104/60; PULSE 70; RESP 18
--- NOTE | 2023-12-21 08:38 | XRAY ---
Indication: Pain following fall. Comparison: November 20, 2022 3 view right hand obtained. No bony, articular, or soft tissue abnormalities.
--- NOTE | 2023-12-21 08:38 | XRAY ---
Indication: Pain following fall. Comparison: None 2 view right humerus obtained. No bony, articular, or soft tissue abnormalities.
--- NOTE | 2023-12-21 08:40 | XRAY ---
Indication: Pain following fall. Comparison: None 2 view right forearm demonstrates posterior elbow soft tissue swelling. No other bony, articular, or soft tissue abnormalities.
== END 2023-12-20 18:46 | disposition home or self-care (01) ==
LOC: ED 16:38
DX: S50.11XA Contusion of right forearm, initial encounter (principal); W01.0XXA Fall on same level from slipping, tripping and stumbling without subsequent striking against object, initial encounter; Y93.E9 Activity, other interior property and clothing maintenance; Y92.039 Unspecified place in apartment as the place of occurrence of the external cause; Z72.0 Tobacco use
CPT/HCPCS: 73060; 73090; 73130; 96372; 99283; J1885; A9270-GY

== ENCOUNTER 2024-04-11 14:28 | Emergency (ER) | payer OTHER ==
--- NOTE | 2024-04-11 14:34 | ERPHSYRPT ---
- History of Present Illness Time Seen by Provider: 04/11/24 14:34 Source: patient Exam Limitations: no limitations Physician History: This is a 39-year-old white female patient who arrives by private vehicle. She does not have a primary care provider. Patient complains of left foot pain after falling 2 days ago going down stairs. She has pain specifically in the heel and cannot bear weight on this area because of the pain. Method of Injury: fell Occurred: days ago (2) Quality: stabbing, throbbing Severity of Pain-Max: moderate Severity of Pain-Current: moderate Lower Extremities Pain: foot: left (Tender heel) Modifying Factors: Improves With: movement Associated Symptoms: unable to bear weight (Left heel pain) Allergies/Adverse Reactions: ciprofloxacin [From Cipro] Allergy (Verified 04/11/24 14:34) sulfamethoxazole [From Bactrim] Allergy (Verified 04/11/24 14:34) trimethoprim [From Bactrim] Allergy (Verified 04/11/24 14:34) Hx Tetanus, Diphtheria Vaccination/Date Given: Yes Hx Influenza Vaccination/Date Given: No Hx Pneumococcal Vaccination/Date Given: No Travel Risk - International Travel Have you traveled outside of the country in past 3 weeks: No - Emerging Infectious Disease Are you exhibiting symptoms associated with any current EIDs: No - Review of Systems Constitutional: No Symptoms Eyes: No Symptoms Ears, Nose, & Throat: No Symptoms Respiratory: No Symptoms Cardiac: No Symptoms Abdominal/Gastrointestinal: No Symptoms Genitourinary Symptoms: No Symptoms Musculoskeletal: Fall, Injury (Left heel) Skin: No Symptoms Neurological: No Symptoms Psychological: No Symptoms Endocrine: No Symptoms Hematologic/Lymphatic: No Symptoms Immunological/Allergic: No Symptoms All Other Systems: Reviewed and Negative - Past Medical History Pertinent Past Medical History: Yes Neurological History: Peripheral Neuropathy Respiratory History: Asthma Musculoskeletal History: Rheumatoid Arthritis Psycho-Social History: Anxiety, Depression, Other - Past Surgical History Past Surgical History: Yes Musculoskeletal: Other Female Surgical History: Hysterectomy, Section Other Surgical History: 3- sections, finger surgery Significant Family History: no pertinent family hx - Female History Hx Last Menstrual Period: total hysterectomy - Social History Smoking Status: Current every day smoker How long have you smoked: 20 yrs Exposure to second hand smoke: Yes Drug Use: none Patient Lives Alone: No - Social Determinants of Health Will the patient participate in the screening: Yes Do you worry about a steady place to live?: No In the past 12 months,have you had to go without utilities?: No Transportation Issues: No Has anyone in your support network made you feel unsafe?: No Have you or anyone in your house had to go without enough: No - Nursing Vital Signs Nursing Vital Signs: Initial Vital Signs Temperature 97.0 F 04/11/24 14:35 Pulse Rate 84 04/11/24 14:35 Respiratory Rate 18 04/11/24 14:35 Blood Pressure 95/61 04/11/24 14:35 O2 Sat by Pulse Oximetry 100 04/11/24 14:35 Pain Scale Pain Intensity 10 - Physical Exam General Appearance: no apparent distress, alert, anxiety, thin Eyes, Ears, Nose, Throat Exam: normal ENT inspection, moist mucous membranes Cardiovascular/Respiratory Exam: chest non-tender, no respiratory distress Gastrointestinal/Abdominal Exam: non-tender Back Exam: normal inspection, normal range of motion, No CVA tenderness Hips Exam: bilateral: non-tender, normal inspection, normal range of motion, no evidence of injury Legs Exam: bilateral leg: non-tender, normal inspection, normal range of motion, no evidence of injury Knees Exam: bilateral knee: non-tender, normal inspection, normal range of motion, no evidence of injury Ankle Exam: bilateral ankle: non-tender, normal inspection, normal range of motion, no evidence of injury Foot Exam: left foot: pain (Left heel), soft tissue tenderness (Left heel) Neuro/Tendon Exam: normal sensation, normal motor functions, normal tendon functions Mental Status Exam: alert, oriented x 3, cooperative Skin Exam: normal color, warm, dry SpO2 Interpretation: normal O2 Delivery: Room Air - Course Nursing assessment & vital signs reviewed: No Ordered Tests: Active Orders 24 hr Category Date Time Status FOOT (MINIMUM 3 VIEWS) Stat Exams 04/11/24 14:52 Completed Medication Summary Generic Name Dose Route Start Last Admin Trade Name Freq PRN Reason Stop Dose Admin Ibuprofen 400 mg 04/11/24 15:26 Ibuprofen 400 Mg Tablet PO 04/11/24 15:27 STAT ONE Oxycodone/Acetaminophen 1 tab 04/11/24 15:26 Oxycodone Hcl/Apap 5 Mg/325 Mg Tablet PO 04/11/24 15:27 STAT STA - Progress Progress: unchanged Progress Note: 04/11/24 15:32 My my medical decision making and the assignment of low complexity for this patient's medical issue today is based on review of the patient's past medical history, review of the patient's medication list, reviewed patient drug allergy list, history present illness and physical findings on examination. The workup in this patient includes x-ray of the patient's left foot. Differential diagnosis includes but not limited to left foot sprain, left foot contusion, left foot fracture/dislocation Compared to similar x-ray performed on 01/09/2024, there is persistent plantar heel spur. There is new nondisplaced fracture of uncertain chronicity present. Counseled pt/family regarding: diagnosis, need for follow-up, rad results Medical Desision Making - Diagnostic Testing Diagnostic test were ordered, analyzed, and reviewed by me: Yes Radiological Interpretation: Reviewed by me, Teleradiologist Report - Risk of complications The pt has a mod risk of morbidity or mortality based on: Need for prescription drug management - Departure Departure Disposition: Home Clinical Impression: Foot fracture, left Condition: Stable Critical Care Time: No Referrals: DOCTOR,NO FAMILY [Primary Care Provider] - Follow up/PCP as directed Additional Instructions: Nonweightbearing. Ice pack/bath 3 times a day for the next 3 days. Ibuprofen 600 mg orally with food 3 times a day for the next 5 days. Call your primary care provider today, 04/11/2024 or follow-up with podiatry or the [facility] orthopedic clinic on 04/12/2024. The orthopedic clinic is a walk-in clinic and is open Sunday through Sunday 8 AM to 10 AM. You do not need to have an appointment. Prescriptions: Oxycodone HCl/Acetaminophen [Percocet 5-325 mg Tablet] 1 each PO Q8H PRN PRN #6 tablet MDD 3 PRN Reason: Moderate To Severe Pain
[2024-04-11 14:36] VITALS: RESP 18; TEMP 97; O2SAT 100
--- NOTE | 2024-04-11 15:23 | XRAY ---
Indication: Pain following fall. Comparison: January 08, 2022 3 nonweightbearing views left foot again demonstrates small plantar heel spur with new with nondisplaced fracture of uncertain chronicity. Stable 2 mm linear soft tissue foreign body adjacently. No other bony, articular, or soft tissue abnormalities.
[2024-04-11] MEDS ORDERED: PERCOCET TABLET 5/325MG ONE (15:29)
[2024-04-11] MEDS ORDERED: MOTRIN 400 MG ONE (15:30)
[2024-04-11] MEDS: MOTRIN 400 MG PO ONE (15:31)
[2024-04-11] MEDS: PERCOCET TABLET 5/325MG PO STA (15:31)
[2024-04-11 15:44] VITALS: BP 102/72; PULSE 70
== END 2024-04-11 16:47 | disposition home or self-care (01) ==
LOC: ED 14:28
DX: S92.902A Unspecified fracture of left foot, initial encounter for closed fracture (principal); W10.9XXA Fall (on) (from) unspecified stairs and steps, initial encounter; Z79.891 Long term (current) use of opiate analgesic; Z72.0 Tobacco use
CPT/HCPCS: 73630; 99283; A9270-GY